=== PATIENT | female | born 1960 | race Caucasian/White ===

== ENCOUNTER 2018-12-27 11:29 | Inpatient (IN) | payer BC ==
[2018-12-27 12:11] LABS: Bilirubin Negative (Negative); Blood, Urine Moderate (Negative); Clarity CLEAR (Clear); Glucose, Urine (Dipstick) Negative (Negative); Leukocyte Negative (Negative); Nitrite Negative (Negative); Protein, Urine (Dipstick) Negative (Neg-Trace); Specific Gravity, Urine 1.021 (1.002-1.036)
[2018-12-27 12:14] LABS: Bacteria/HPF None Seen HPF (None Seen); Hyaline Casts/LPF 0-3 HYALINE CAST LPF (0-3 Hyaline); Pathc Cast-AUWi Flag 0.81 (0-2.49); RBC/HPF 21-50 HPF (0-3); Squamous Epithelial 0-3 HPF (0-3); WBC/HPF 0-3 HPF (0-3)
[2018-12-27] MEDS ORDERED: Acetaminophen 500 MG TAB ONE (12:37)
[2018-12-27] MEDS ORDERED: Cefepime 2 GM in Sodium Chloride 0.9% 100 ML IVPB SCH (13:00)
[2018-12-27 13:01] LABS: Hemoglobin 7.9 g/dL (12.0-16.0); Mean Corpuscular HGB CONC 31.6 g/dL (32.0-36.0); Mean Corpuscular Hemoglobin 26.4 pg (27.0-31.0); Mean Corpuscular Volume 83.7 fL (78.0-98.0); Mean Platelet Volume 7.8 fL (7.4-10.4); Platelet Count 32 thou/uL (130-400); RBC Distribution Width 19.6 % (11.5-14.5); Red Blood Cell (RBC) Count 2.99 mill/uL (4.20-5.40); White Blood Cell (WBC) Count 3.3 thou/uL (4.8-10.8)
[2018-12-27 13:18] LABS: ALT (SGPT) 19 U/L (8-55); AST (SGOT) 36 U/L (5-34); Albumin 3.3 g/dL (3.5-5.0); Alkaline Phosphatase 86 U/L (40-150); Anion Gap 9 mmol/L (10-20); BUN (Urea Nitrogen) 15 mg/dL (9.8-20.1); Bilirubin, Total 1.6 mg/dL (0.2-1.2); Calc. Creatinine Clearance 0 mL/min (70-130); Carbon Dioxide 25 mmol/L (22-29); Chloride 107 mmol/L (98-107); Estimated GFR-MDRD 86; Globulin 2.9 g/dL (2.4-3.5); Glucose 96 mg/dL (70-105); Potassium 4.2 mmol/L (3.5-5.1); Protein, Total 6.2 g/dL (6.0-8.3); Sodium 137 mmol/L (136-145)
[2018-12-27 13:26] LABS: #Lymphocytes 0.5 thou/uL (1.20-3.40); #Monocytes 0.4 thou/uL (0.11-0.59); #Neutrophils 2.3 thou/uL (1.40-6.50); %Eosinophils 0.3 % (0.0-10.0); %Lymphocytes 15.7 % (21.0-51.0); %Monocytes 12.8 % (0.0-10.0); %Neutrophils 71.2 % (42.0-75.0); Anisocytosis SLIGHT = 6-15 cells (100X) (0-5/hpf); Hypochromia SLIGHT = 6-15 cells (100X) (0-5/hpf); MDiff Complete? YES; Platelet Morphology Comment Appears Decreased
--- NOTE | 2018-12-27 13:48 | RAD ---
RADIOGRAPH CHEST 1 VIEW: Date: 12/27/18 Time: 1136 HOURS HISTORY: fever COMPARISON: 01/22/15. There are no prior chest radiographs later than 01/22/15. FINDINGS: The previously demonstrated right IJ implantable vascular access port has been replaced with a differ ent type of such catheter. The distal tip overlies the SVC. There is a new finding of multiple small focal faint very irregular nodular densities in the bilateral mid and lower lung zones, and one at th e right apex. There is no consolidation, cardiomegaly, pneumothorax, pulmonary edema, or effacement o f lateral costophrenic angles. IMPRESSION: 1. Multiple faint nodular densities bilaterally, perhaps representing pulmonary metastases. 2. No definite acute findings. TERI [] POS: LILIBETH
[2018-12-27] MEDS ORDERED: Acetaminophen 325 MG TAB PO PRN (17:58)
[2018-12-27] MEDS ORDERED: fentaNYL 50 mcg/hour Patch TD SCH (18:00)
[2018-12-27 18:21] VITALS: BMI 30.2
[2018-12-27 18:35] LABS: Mean Corpuscular HGB CONC 30.9 g/dL (32.0-36.0); Mean Corpuscular Hemoglobin 26.3 pg (27.0-31.0); Mean Corpuscular Volume 85.2 fL (78.0-98.0); Mean Platelet Volume 16.6 fL (7.4-10.4); Platelet Count 27 thou/uL (130-400); RBC Distribution Width 19.4 % (11.5-14.5); Red Blood Cell (RBC) Count 3.02 mill/uL (4.20-5.40); White Blood Cell (WBC) Count 2.8 thou/uL (4.8-10.8)
[2018-12-27] MEDS: Sodium Chloride 0.9% 1,000 ML IV SCH (18:36)
[2018-12-27] MEDS: Nicotine 14 MG PATCH TOP SCH (18:39)
[2018-12-27 18:51] LABS: #Lymphocytes 0.6 thou/uL (1.20-3.40); #Monocytes 0.4 thou/uL (0.11-0.59); #Neutrophils 1.8 thou/uL (1.40-6.50); %Basophils 0.7 % (0.0-1.0); %Eosinophils 0.2 % (0.0-10.0); %Lymphocytes 20.6 % (21.0-51.0); %Monocytes 14.5 % (0.0-10.0); Anisocytosis SLIGHT = 6-15 cells (100X) (0-5/hpf); Elliptocytes SLIGHT = 2-5 cells (100X) (0-1/hpf); Hypochromia SLIGHT = 6-15 cells (100X) (0-5/hpf); MDiff Complete? YES; Microcytosis SLIGHT = 6-15 cells (100X) (0-5/hpf); Platelet Morphology Comment Appears Decreased; Tear Drops SLIGHT = 2-5 cells (100X) (0-1/hpf)
[2018-12-27 18:53] LABS: Iron 25 ug/dL (50-170); Iron Binding Capacity, Total 325 mcg/dL (265-497)
[2018-12-27 19:26] LABS: CEA, Serum 25.87 ng/mL (< or = 5.0); Folate (Folic Acid) 9.5 ng/mL (7.0-31.4)
[2018-12-27] MEDS ORDERED: tiZANidine HCl 4 MG TAB PO SCH (21:00)
[2018-12-27] MEDS ORDERED: Prevnar 13-Val Conj/PF 0.5 ML SYRINGE IM ONE (21:00)
[2018-12-27] MEDS ORDERED: rOPINIRole HCl 1 MG TAB PO PRN (21:05)
--- NOTE | 2018-12-27 21:23 | HP ---
CHIEF COMPLAINT: Neutropenic fever with pancytopenia. HISTORY OF PRESENT ILLNESS: The patient is a 58-year-old female, who has had 3 days of fever, has not taken any medication for fever. She has a history of colon cancer with mets to her lung. She had her colon removed by Dr. Fraser many years ago and has been undergoing a 2nd round of chemotherapy. She was supposed to have her 3rd infusion yesterday, but due to not feeling well, did not go and showed up at my office on this day of admission to see why she felt so bad. A strep swab was done in my office at about noon and it was negative for strep. She looked so ill and was mentally confused. She was sent to the emergency room. It is concerning that she may have an elevated ammonia level, which she has had in the past. The patient' s temperature to this point has been usually 101 to 101.9. In the ER, it is noted at being 101.8. PAST MEDICAL HISTORY: As mentioned previously, she has had a history of colon cancer, it was surgically resected by Dr. Fraser several years ago. Past medical history also includes osteoporosis, hepatitis C, treated in 1989, hypothyroidism , depression, chronic pain, history of intestinal stricture. She also has history of recurrent muscle spasms, hypothyroidism, and attention deficit disorder, adverse dermatological reaction to her chemotherapy, RLS PAST SURGICAL HISTORY: Includes right ankle surgery, the aforementioned colon resection, a followup intestinal stricture takedown by Dr. Brantley in 2014, hysterectomy. PAST PSYCHIATRIC HISTORY: Includes depression and anxiety. SOCIAL HISTORY: She is currently . She continues to smoke 1/2 pack per day and drinks socially. FAMILY HISTORY: Noncontributory. She has no known drug allergies. MEDICATIONS ON ADMISSION: Include; 1. Tizanidine 4 mg b.i.d. 2. Duloxetine 30 mg daily. 3. Capecitabine 500 mg tablet that she takes three times a day. 4. Levothyroxine 88 mcg daily. 5. Methylphenidate 10 mg b.i.d. 6. She uses a fentanyl 50 mcg patch every 72 hours and has hydrocodone is present for breakthrough pain. 7. Ropinerole 1 mg q hs REVIEW OF SYSTEMS: CONSTITUTIONAL: Given by her spouse because she is confused. He admits to fever, malaise, chills prior to coming to the hospital. She has been confused. HEENT: Denies her having any blurred vision, trouble hearing. No drainage from ears, nose, or throat. She has had a sore throat and it was strep negative. CHEST: She has some mild shortness of breath. Only an occasional cough that is nonproductive. HEART: Denies palpitations or chest pain. ABDOMEN: No nausea, vomiting, or diarrhea. : No painful urination. No blood in urine or stool. MUSCULOSKELETAL: Denies any pain in joints or muscles. SKIN: No new rashes or lesions. NEUROLOGIC: She is confused. PHYSICAL EXAMINATION: At the time of admission, VITAL SIGNS: Blood pressure 137/80, pulse 104, temperature 101.8, O2 saturation is 95% on room air. GENERAL: This is a well-developed, well-nourished female, who is somewhat confused, but cooperative. HEENT: Normocephalic, atraumatic. Pupils are equal, round, and reactive to light. Extraocular muscles intact. TMs, nares, and pharynx are clear. NECK: Supple. Trachea midline. No significant adenopathy or tenderness. CHEST: Clear to auscultation. HEART: Regular rate and rhythm. Occasionally tachycardic. BREASTS: Deferred. ABDOMEN: Soft, nontender without organomegaly. : Deferred. EXTREMITIES: Without clubbing, cyanosis. There is 1+ edema in the lower extremities. SKIN: Without acute rashes or lesions. Mildly pale. NEUROLOGIC: Cranial nerves are intact. Sensory exam is grossly intact. Gait and cerebellar function are not tested. Mental status is altered at this time. LABORATORY DATA: The lab work from admission. Chest x-ray shows evidence of diffuse metastatic disease. The urinalysis shows 20 to 50 rbc's. The CBC shows a WBC of 3.3, hemoglobin 7.9, hematocrit 25 with platelets at 32. Lactic acid is at 0.7. Sodium 137, potassium 4.2, chloride 107, CO2 is 25, BUN is 15, creatinine 0.7 with a GFR of 86, glucose 98, calcium 8, bilirubin 1.6. Protein 6.2. AST slightly elevated at 36. The flu screens are negative for A and B as well as strep screen negative. ASSESSMENT: 1. Neutropenic fever with pancytopenia. 2. Anemia. 3. History of metastatic colon cancer. 4. Thrombocytopenia. 5. Chronic pain. PLAN: IV fluids, IV antibiotics. Oncology consult. Pain Management. Serial re-evaluation. Job ID: [id number] MTDD
[2018-12-27] MEDS: diphenhydrAMINE 25 MG CAP PO PRN (22:01)
[2018-12-27] MEDS: tiZANidine HCl 4 MG TAB PO SCH (22:02)
[2018-12-28] MEDS: Sodium Chloride 0.9% 1,000 ML IV SCH ×2 (01:23→17:32)
[2018-12-28] MEDS: Cefepime 2 GM in Sodium Chloride 0.9% 100 ML IVPB SCH ×3 (01:23→18:40)
[2018-12-28] MEDS: Vancomycin HCl 1.25 GM in Sodium Chloride 0.9% 250 ML 250 ML IVPB SCH ×2 (02:50→13:55)
[2018-12-28] MEDS: Levothyroxine Sodium 88 MCG TAB PO SCH (06:03)
[2018-12-28] MEDS ORDERED: tiZANidine HCl 4 MG TAB PO SCH (09:00)
[2018-12-28] MEDS: DULoxetine 30 MG CAP PO SCH (09:18)
--- NOTE | 2018-12-28 11:06 | RAD ---
CHEST 2 VIEWS: Date: 12/28/18 HISTORY: History of mets and lung cancer. Follow-up fever status post chemotherapy. FINDINGS: Patchy alveolar nodular and interstitial parenchymal changes noted bilaterally, more prominent in the right mid and upper lung zone when compared to the prior study. This raises the concern for the poss ibility of some minimal or early pneumonia. Heart size is within normal limits. There are nodular meghna nges noted bilaterally, which certainly could represent pulmonary metastasis. There are some healed r ib fractures. No overt edema or confluent pneumonia. IMPRESSION: Some patchy alveolar and interstitial parenchymal changes, more focally prominent in the right upper lobe, raising concern for early or developing pneumonia. Nodular changes in both lungs, worrisome for the possibility of metastasis. Continue short-term follow-up for clearing or stability. POS: LILIBETH
[2018-12-28] MEDS: diphenhydrAMINE 25 MG CAP PO PRN ×2 (15:13→20:50)
--- NOTE | 2018-12-28 15:57 | CON ---
DATE OF CONSULTATION: REASON FOR CONSULT: Metastatic colon cancer. HISTORY OF PRESENT ILLNESS: Ms. Muhammad is a 58-year-old female who has metastatic colon cancer. She receives her care in [place], [place]. She presented to her PCP with 4-day complaint of fever. She looked ill, so was sent to the emergency room for further evaluation. Chest x-ray showed a possible early pneumonia. The patient 's white count in the emergency room was 2.8, her hemoglobin was 8, her platelet count was 27,000. She had an ANC of 1.8. She was admitted for treatment. The patient has a history of pancytopenia secondary to cirrhosis and hepatitis C. She is currently at her baseline white count. She did receive chemo last week. She does not remember the name of the chemo. She has been on this regimen for over 3 months. This is her first fever or hospitalization with chemo. She complains of hoarseness and cough. Denies any fever, chills, chest pain, or shortness of breath at this time. PAST MEDICAL HISTORY: 1. Metastatic adenocarcinoma of the colon. 2. Depression and anxiety. 3. Hypothyroidism. 4. Hepatitis C. 5. Cirrhosis. PAST SURGICAL HISTORY: 1. Ankle surgery. 2. Colon resection. 3. Intestinal stricture takedown. 4. MediPort placement. 5. Hysterectomy. ALLERGIES: NO KNOWN DRUG ALLERGIES. HOME MEDICATIONS: 1. Ropinirole daily q.6 hours. 2. Tizanidine b.i.d. 3. Hydrocodone p.r.n. 4. Levothyroxine 50 mcg daily. 5. Fentanyl patch. FAMILY HISTORY: Noncontributory. SOCIAL HISTORY: , lives in [place]. REVIEW OF SYSTEMS: A 10-point review of systems is negative except for noted in the HPI. PHYSICAL EXAMINATION: VITAL SIGNS: Temperature 99.3, pulse is 95, respiratory rate 18, BP is 131/73. She is 95% on room air. GENERAL: Well-developed, well-nourished female, in no acute distress. HEENT: Normocephalic, atraumatic. Pupils are equal and reactive to light. NECK: Supple. CV: Regular rate and rhythm. LUNGS: Clear. ABDOMEN: Soft, nontender. Bowel sounds are positive. EXTREMITIES: No clubbing, cyanosis, or edema. SKIN: No rash. HEMATOLOGICAL: No petechiae or purpura. NEUROLOGICAL: Nonfocal. PSYCH: The patient is alert, oriented, and appropriate. PERTINENT LABS AND X-RAYS: Current WBCs are 3.3, hemoglobin 7.9, hematocrit 25, platelet count 32,000. She has 71% neutrophils, 15% lymphocytes, 13% monocytes. Sodium is 137, potassium 4.2, chloride 107, CO2 is 25, BUN is 15, creatinine 0.7 , lactic acid 0.7, calcium 8.0, total bilirubin is 1.6, AST is 36, ALT is 19, alkaline phosphatase is 86. Ammonia is 37. Serum total protein 6.2, albumin 3.3, globulin 2.9. CEA is 25.87. B12 and folate are normal. Radiology, per HPI. ASSESSMENT: 1. Metastatic colon cancer, possibly on Xeloda oral chemotherapy. 2. Chronic pancytopenia secondary to cirrhosis and hepatitis C. 3. Early pneumonia with fever. DISCUSSION: The patient's ANC is improved to 2.3. She is no longer neutropenic. She does have chronic pancytopenia. No need for platelet transfusion at this time as it has had a baseline based on lab values reviewed in the [facility]. I would discontinue the vancomycin and continue the cefepime with transition to oral Levaquin. She can be discharged to follow up with her primary oncologist in [place] when she has been afebrile for 24 hours. Thank you for the consult. Job ID: [id number] SHANTEL
[2018-12-28] MEDS: Nicotine 14 MG PATCH TOP SCH (18:43)
[2018-12-28] MEDS: tiZANidine HCl 4 MG TAB PO SCH (20:48)
[2018-12-29] MEDS: Sodium Chloride 0.9% 1,000 ML IV SCH ×2 (02:06→12:01)
[2018-12-29] MEDS: Cefepime 2 GM in Sodium Chloride 0.9% 100 ML IVPB SCH ×3 (02:10→18:20)
[2018-12-29] MEDS: Levothyroxine Sodium 88 MCG TAB PO SCH (07:00)
[2018-12-29] MEDS: DULoxetine 30 MG CAP PO SCH (09:30)
[2018-12-29] MEDS ORDERED: Buprenorphine 8mg/Naloxone 2mg per 1 FILM SL SCH (11:45)
[2018-12-29] MEDS: diphenhydrAMINE 25 MG CAP PO PRN ×2 (14:57→20:48)
[2018-12-29] MEDS: Nicotine 14 MG PATCH TOP SCH (20:49)
[2018-12-29] MEDS: tiZANidine HCl 4 MG TAB PO SCH (20:49)
[2018-12-30] MEDS: Cefepime 2 GM in Sodium Chloride 0.9% 100 ML IVPB SCH (01:51)
[2018-12-30] MEDS: diphenhydrAMINE 25 MG CAP PO PRN ×2 (01:51→21:21)
[2018-12-30 04:19] LABS: Hemoglobin 6.5 g/dL (12.0-16.0); Mean Corpuscular HGB CONC 30.4 g/dL (32.0-36.0); Mean Corpuscular Hemoglobin 25.5 pg (27.0-31.0); Mean Corpuscular Volume 83.9 fL (78.0-98.0); Mean Platelet Volume 15.6 fL (7.4-10.4); Platelet Count 17 thou/uL (130-400); RBC Distribution Width 19.5 % (11.5-14.5); Red Blood Cell (RBC) Count 2.56 mill/uL (4.20-5.40); White Blood Cell (WBC) Count 1.2 thou/uL (4.8-10.8)
[2018-12-30 04:47] LABS: Anisocytosis SLIGHT = 6-15 cells (100X) (0-5/hpf); Band 4 % (5-11); Elliptocytes SLIGHT = 2-5 cells (100X) (0-1/hpf); Eosinophils 2 % (0-10); Lymphocytes 24 % (21-51); MDiff Complete? YES; Monocytes 14 % (0-10); Myelocyte 1 % (0-0); Neutrophil 55 % (42-75); Tear Drops SLIGHT = 2-5 cells (100X) (0-1/hpf)
[2018-12-30] MEDS: Levothyroxine Sodium 88 MCG TAB PO SCH (05:17)
[2018-12-30] MEDS: Buprenorphine 8mg/Naloxone 2mg per 1 FILM SL SCH (09:03)
[2018-12-30] MEDS: DULoxetine 30 MG CAP PO SCH (09:04)
[2018-12-30] MEDS: Nicotine 14 MG PATCH TOP SCH (18:15)
[2018-12-30] MEDS: tiZANidine HCl 4 MG TAB PO SCH (21:21)
[2018-12-31] MEDS: diphenhydrAMINE 25 MG CAP PO PRN (04:17)
[2018-12-31] MEDS: Levothyroxine Sodium 88 MCG TAB PO SCH (04:17)
[2018-12-31 07:05] LABS: #Lymphocytes 0.6 thou/uL (1.20-3.40); #Monocytes 0.3 thou/uL (0.11-0.59); #Neutrophils 1.5 thou/uL (1.40-6.50); %Basophils 0.6 % (0.0-1.0); %Eosinophils 0.2 % (0.0-10.0); %Lymphocytes 22.7 % (21.0-51.0); %Monocytes 13.7 % (0.0-10.0); %Neutrophils 62.8 % (42.0-75.0); Hemoglobin 9.7 g/dL (12.0-16.0); Mean Corpuscular HGB CONC 30.7 g/dL (32.0-36.0); Mean Corpuscular Hemoglobin 26.6 pg (27.0-31.0); Mean Corpuscular Volume 86.7 fL (78.0-98.0); Mean Platelet Volume 15.2 fL (7.4-10.4); Platelet Count 26 thou/uL (130-400); RBC Distribution Width 18.9 % (11.5-14.5); Red Blood Cell (RBC) Count 3.65 mill/uL (4.20-5.40); White Blood Cell (WBC) Count 2.5 thou/uL (4.8-10.8)
[2018-12-31 07:25] LABS: Anion Gap 10 mmol/L (10-20); BUN (Urea Nitrogen) 7 mg/dL (9.8-20.1); Calc. Creatinine Clearance 120 mL/min (70-130); Calcium 8.1 mg/dL (7.8-10.44); Carbon Dioxide 26 mmol/L (22-29); Chloride 105 mmol/L (98-107); Estimated GFR-MDRD Greater than 90; Glucose 83 mg/dL (70-105); Potassium 4.1 mmol/L (3.5-5.1); Sodium 137 mmol/L (136-145)
[2018-12-31] MEDS: DULoxetine 30 MG CAP PO SCH (09:16)
[2018-12-31] MEDS: hydrOXYzine 25 MG TAB PO SCH ×2 (09:23→13:32)
[2018-12-31 10:19] VITALS: BP 144/73; TEMP 98
[2018-12-31] MEDS: Buprenorphine 8mg/Naloxone 2mg per 1 FILM SL SCH (10:35)
== END 2018-12-31 15:05 | disposition home or self-care (01) | DRG 810 ==
LOC: ERS 11:29 → ONC 13:35
PROVIDERS: ADMIT Specialist; ATTEND Specialist
DX: D70.9 Neutropenia, unspecified (principal); R50.81 Fever presenting with conditions classified elsewhere; F41.9 Anxiety disorder, unspecified; F32.9 Major depressive disorder, single episode, unspecified; D64.9 Anemia, unspecified; Z85.038 Personal history of other malignant neoplasm of large intestine; D69.6 Thrombocytopenia, unspecified; G89.29 Other chronic pain
CPT/HCPCS: 36415; 36430; 71045; 71046; 80048; 80053; 81003; 81015; 82140; 82378; 82607; 82746; 83540; 83550; 83605; 85025; 86850; 86900; 86901; 87040; 87086; 87804; 90471; 90670; 94760; 96365; 96367; G0009; J0692; J1642; J1956; J3370; J7050; P9016; Q0163

== ENCOUNTER 2019-02-17 11:51 | Emergency (ER) | payer BC ==
[2019-02-17] MEDS ORDERED: Ketorolac Tromethamine 30 MG/ML VIAL ONE (13:42)
[2019-02-17 14:19] LABS: Blood, Urine Negative (Negative); Clarity CLOUDY (Clear); Glucose, Urine (Dipstick) Negative (Negative); Protein, Urine (Dipstick) Trace mg/dL (Neg-Trace); Specific Gravity, Urine 1.024 (1.002-1.036); Urobilinogen 0.2 mg/dL (0.2-1.0)
[2019-02-17 14:21] LABS: Bacteria/HPF None Seen HPF (None Seen); RBC/HPF 0-3 HPF (0-3); WBC/HPF 0-3 HPF (0-3)
[2019-02-17 14:23] LABS: Pathc Cast-AUWi Flag 13.87 (0-2.49)
[2019-02-17 14:30] LABS: Hemoglobin 7.9 g/dL (12.0-16.0); Mean Corpuscular HGB CONC 32.9 g/dL (32.0-36.0); Mean Corpuscular Volume 88.2 fL (78.0-98.0); RBC Distribution Width 19.6 % (11.5-14.5); Red Blood Cell (RBC) Count 2.71 mill/uL (4.20-5.40); White Blood Cell (WBC) Count 2.1 thou/uL (4.8-10.8)
[2019-02-17 14:31] LABS: Bilirubin Negative (Negative); Leukocyte Negative (Negative); Nitrite Negative (Negative)
[2019-02-17 14:32] LABS: Hyaline Casts/LPF 7-10 HYALINE CAST LPF (0-3 Hyaline); Other Casts/LPF 0-3 FINELY GRAN LPF (0-3 Hyaline)
[2019-02-17 14:33] LABS: Crystals/HPF 1+ AMORPH URATES HPF (Negative)
[2019-02-17 14:37] LABS: #Lymphocytes 0.3 thou/uL (1.20-3.40); #Monocytes 0.2 thou/uL (0.11-0.59); #Neutrophils 1.6 thou/uL (1.40-6.50); %Eosinophils 0.7 % (0.0-10.0); %Lymphocytes 15.5 % (21.0-51.0); %Monocytes 7.2 % (0.0-10.0); %Neutrophils 76.5 % (42.0-75.0); Platelet Count 16 thou/uL (130-400)
[2019-02-17 14:49] LABS: ALT (SGPT) 18 U/L (8-55); AST (SGOT) 52 U/L (5-34); Albumin 2.7 g/dL (3.5-5.0); Alkaline Phosphatase 70 U/L (40-150); Anion Gap 11 mmol/L (10-20); BUN (Urea Nitrogen) 20 mg/dL (9.8-20.1); Bilirubin, Total 1.3 mg/dL (0.2-1.2); Calc. Creatinine Clearance 0 mL/min (70-130); Calcium 7.5 mg/dL (7.8-10.44); Carbon Dioxide 23 mmol/L (22-29); Chloride 97 mmol/L (98-107); Estimated GFR-MDRD 75; Globulin 2.9 g/dL (2.4-3.5); Glucose 120 mg/dL (70-105); Potassium 3.9 mmol/L (3.5-5.1); Protein, Total 5.6 g/dL (6.0-8.3); Sodium 127 mmol/L (136-145)
[2019-02-17 14:50] LABS: Anisocytosis MODERATE=16-30 cells (100X) (0-5/hpf); Elliptocytes SLIGHT = 2-5 cells (100X) (0-1/hpf); Large Platelets SLIGHT; MDiff Complete? YES; Mean Platelet Volume 12.7 fL (7.4-10.4); Ovalocytes SLIGHT = 2-5 cells (100X) (0-1/hpf); Platelet Morphology Comment Appears Decreased; Poikilocytosis SLIGHT = 6-15 cells (100X) (0-5/hpf); Polychromasia SLIGHT = 2-3 cells (100X) (0-2/hpf); Schistocytes SLIGHT = 2-5 cells (100X) (0-1/hpf)
--- NOTE | 2019-02-17 15:33 | CT ---
EXAM: Abdomen and pelvic CT scan with contrast: HISTORY: Colon cancer, pain COMPARISON: 01/09/2015 CT exam FINDINGS: Numerous bilateral pulmonary nodules with cavitation are present throughout the visualized lung bases . Esophageal varices are seen at the low chest. Liver: Calcified lesion at the hepatic dome is present and there are additional, multifocal hepatic h ypodense lesions. There is a mild cirrhotic, nodular contour of the liver. Recanalization of the adjacent periumbilical vein present. Gallbladder: Not visualized Pancreas: Unremarkable Spleen: Enlarged and heterogeneous. Splenic varices. Adrenal glands: Unremarkable. Kidneys: No renal calculus or acute obstruction. There is mass effect upon the left kidney due to the markedly enlarged spleen. Bowel: Bowel is limited in assessment without enteric contrast. There are loops of air distended colo n. Anastomotic sutures seen within the right lower quadrant. Large, 8.6 cm in diameter, partially calcified cystic and solid mass of the left lower quadrant, which cannot be fully from the traversing unopacified bowel. Urinary Bladder: The urinary bladder is unremarkable. Adenopathy: There are scattered borderline-sized abdominal lymph nodes Free Air: No free air. Ascites: No ascites. Osseous structures: No acute osseous abnormalities. Ill-defined stellate density of the lower right ventral abdominal wall could relate to scar or altern atively mass embedded within the abdominal wall musculature. IMPRESSION: Cirrhosis and portal hypertension. Large partially calcified cystic and solid mass of the left lower quadrant indicative of malignancy, site of origin, not further discerned. Primary consideration would include a large calcified colonic malignancy or alternatively left ovarian malignancy. Correlation with follow-up exam utilizin g rectal contrast administration would be helpful. As necessary, mass would be amenable to percutaneous biopsy. Numerous metastatic pulmonary nodules, cavitated. Calcified lesion of the hepatic dome which could either relate to calcified metastatic lesion or alte rnatively briefly treated malignancy. Correlate with history and interval prior imaging exams. Transcribed Date/Time: 02/17/2019 5:07 PM
[2019-02-17] MEDS ORDERED: ISOVUE-370 76%-LOCM 1 ML ONE (17:07)
== END 2019-02-17 17:38 | disposition home or self-care (01) ==
LOC: ERS 11:51
DX: R10.9 Unspecified abdominal pain (principal); E87.1 Hypo-osmolality and hyponatremia; D61.818 Other pancytopenia; C18.9 Malignant neoplasm of colon, unspecified; E03.9 Hypothyroidism, unspecified; Z79.899 Other long term (current) drug therapy; F17.210 Nicotine dependence, cigarettes, uncomplicated
CPT/HCPCS: 74177; 80053; 81003; 83605; 85025; 86850; 86900; 86901; 87077; 87086; 87149; A4353; J1885; Q9966

== ENCOUNTER 2019-02-18 12:26 | Inpatient (IN) | payer BC ==
--- NOTE | 2019-02-18 12:47 | RAD ---
Chest AP view INDICATION: Fever and neck pain COMPARISON: Chest radiograph dated 12/28/2018 FINDINGS: Lungs:There are numerous scattered pulmonary nodules consistent with pulmonary metastatic disease. Cardiac silhouette pulmonary vasculature:The cardiomediastinal silhouette appears within normal limit s. Pleural spaces:No pleural effusion or pneumothorax is demonstrated. Upper abdomen:No abnormality seen. Osseous structures: No acute osseous abnormality. The right chest wall port is unchanged in position. IMPRESSION: Stable pulmonary metastatic disease. No definite acute infiltrate demonstrated.
[2019-02-18] MEDS ORDERED: Morphine 4 MG/ML VIAL ONE (13:16)
[2019-02-18] MEDS ORDERED: Ondansetron PF 4 MG/2 ML Vial ONE (13:16)
[2019-02-18 13:19] LABS: #Lymphocytes 0.3 thou/uL (1.20-3.40); #Monocytes 0.2 thou/uL (0.11-0.59); #Neutrophils 1.9 thou/uL (1.40-6.50); %Basophils 1.1 % (0.0-1.0); %Eosinophils 0.6 % (0.0-10.0); %Lymphocytes 11.8 % (21.0-51.0); %Monocytes 8.9 % (0.0-10.0); %Neutrophils 77.8 % (42.0-75.0); Hemoglobin 9.2 g/dL (12.0-16.0); Mean Corpuscular HGB CONC 32.2 g/dL (32.0-36.0); Mean Corpuscular Hemoglobin 29.1 pg (27.0-31.0); Mean Corpuscular Volume 90.3 fL (78.0-98.0); Mean Platelet Volume 15.9 fL (7.4-10.4); Platelet Count 12 thou/uL (130-400); RBC Distribution Width 19.6 % (11.5-14.5); Red Blood Cell (RBC) Count 3.16 mill/uL (4.20-5.40); White Blood Cell (WBC) Count 2.5 thou/uL (4.8-10.8)
[2019-02-18 13:31] LABS: ALT (SGPT) 26 U/L (8-55); AST (SGOT) 82 U/L (5-34); Albumin 2.9 g/dL (3.5-5.0); Alkaline Phosphatase 79 U/L (40-150); Anion Gap 14 mmol/L (10-20); BUN (Urea Nitrogen) 24 mg/dL (9.8-20.1); Bilirubin, Total 1.5 mg/dL (0.2-1.2); Calc. Creatinine Clearance 0 mL/min (70-130); Calcium 7.6 mg/dL (7.8-10.44); Carbon Dioxide 19 mmol/L (22-29); Chloride 99 mmol/L (98-107); Estimated GFR-MDRD 81; Globulin 3.1 g/dL (2.4-3.5); Glucose 93 mg/dL (70-105); Potassium 3.8 mmol/L (3.5-5.1); Sodium 128 mmol/L (136-145)
[2019-02-18] MEDS ORDERED: Acetaminophen 500 MG TAB ONE (13:36)
[2019-02-18] MEDS ORDERED: Fentanyl 100 MCG/2 ML VIAL ONE (14:19)
[2019-02-18] MEDS ORDERED: Piperacillin/Tazobactam 4.5 GM VIAL ONE (14:19)
[2019-02-18 15:05] LABS: Bilirubin Small (Negative); Blood, Urine Trace (Negative); Clarity CLEAR (Clear); Glucose, Urine (Dipstick) Negative (Negative); Leukocyte Negative (Negative); Nitrite Negative (Negative); Protein, Urine (Dipstick) Trace mg/dL (Neg-Trace); Specific Gravity, Urine 1.028 (1.002-1.036); Urobilinogen 0.2 mg/dL (0.2-1.0); pH, Urine 5.5 (5.0-9.0)
[2019-02-18 15:08] LABS: Bacteria/HPF None Seen HPF (None Seen); RBC/HPF 0-3 HPF (0-3); Squamous Epithelial 0-3 HPF (0-3)
[2019-02-18 15:19] LABS: Hyaline Casts/LPF 4-6 HYALINE CAST LPF (0-3 Hyaline); Other Casts/LPF 0-3 FINELY GRAN LPF (0-3 Hyaline)
[2019-02-18 15:20] LABS: Renal Epithelial 0-3 HPF (0-3); Transitional Epithelial 0-3 HPF (0-3)
[2019-02-18 15:42] LABS: Troponin I 0.048 ng/mL (< 0.028)
[2019-02-18] MEDS ORDERED: Fentanyl 100 MCG/2 ML VIAL SLOW IVP PRN ×2 (16:21→19:40)
[2019-02-18] MEDS ORDERED: Ondansetron ODT 4 MG TAB SL PRN (16:21)
[2019-02-18] MEDS ORDERED: Acetaminophen 500 MG TAB PO PRN (16:21)
[2019-02-18] MEDS ORDERED: Ondansetron PF 4 MG/2 ML Vial IVP PRN (16:21)
[2019-02-18] MEDS ORDERED: Fentanyl 100 MCG/2 ML VIAL SLOW IVP SCH (17:00)
[2019-02-18] MEDS: Sodium Chloride 0.9% 1,000 ML IV SCH (18:02)
[2019-02-18 18:32] LABS: Troponin I 0.019 ng/mL (< 0.028)
[2019-02-18 18:37] VITALS: BMI 28.3
[2019-02-18] MEDS: Fentanyl 100 MCG/2 ML VIAL SLOW IVP PRN ×2 (19:06→23:03)
[2019-02-18] MEDS ORDERED: Simethicone Chewable 80 MG TAB PO PRN (19:39)
[2019-02-18] MEDS: Piperacillin/Tazobactam 4.5 GM in Sodium Chloride 0.9% 100 ML IVPB SCH (19:45)
[2019-02-18] MEDS: tiZANidine HCl 4 MG TAB PO SCH (20:28)
[2019-02-18 21:22] LABS: Troponin I 0.029 ng/mL (< 0.028)
[2019-02-18] MEDS: Promethazine HCl 25 MG in Sodium Chloride 0.9% 50 ML IVPB PRN (23:04)
[2019-02-19] MEDS: Sodium Chloride 0.9% 1,000 ML IV SCH ×3 (00:59→17:31)
[2019-02-19] MEDS: Piperacillin/Tazobactam 4.5 GM in Sodium Chloride 0.9% 100 ML IVPB SCH ×3 (01:10→13:18)
--- NOTE | 2019-02-19 03:17 | HP ---
CHIEF COMPLAINT: Neutropenia with fever. HISTORY OF PRESENT ILLNESS: The patient is a 58-year-old metastatic colon cancer patient undergoing chemotherapy who arrived at Dr. Morataya' office on the date of admission, very weak, barely able to walk, complaining of neck and back pain. Her temperature in his office was 101.6, and on physical exam she had petechiae and skin eruption all over her face and chest. Her lungs were clear. Heart, tachycardic. Back and neck were both tender to palpation. Abdomen, soft without organomegaly. Skin, hot. Neurologically, she was mildly agitated and confused. At this point, her , who was with her, was told to take her to the emergency room for obtaining blood cultures and beginning IV fluid resuscitation as well as antibiotics in the fastest manner possible. The patient has been fighting her cancer diagnosis for several years, it is metastatic. Her states that she recently started a new chemotherapy that he cannot recall the name of. Their oncologist is in [place], they spent some time at [facility] and was discharged from [facility] earlier last week. She began to feel feverish with aches and pains and malaise. Such that, she came to the [facility] Emergency Room on 02/17/2019 and was subsequently sent home. At this point, she feels much worse and she is immunocompromised, such that she needs to be hospitalized. In the emergency room, she was noted to have a white count 2.5 with a platelet count of 12, and she arrived with a temperature of 102.7, and she was placed in the hospital for further care. PAST MEDICAL HISTORY: Significant for the aforementioned metastatic colon cancer surgically resected by Dr. Fraser several years ago. She also has osteoporosis, hepatitis C, history of polysubstance abuse. Her hepatitis C was treated in 1989, depression, chronic pain, intestinal stricture, muscle spasms, hypothyroidism, attention deficit disorder, and restless legs syndrome. She has also had an adverse reaction dermatologically to her chemo with diffuse skin eruption. She was last hospitalized for neutropenic fever with pancytopenia on 12/27/2018. PAST SURGICAL HISTORY: Includes right ankle surgery, colon resection, followup surgery for intestinal stricture takedown by Dr. Brantley in 2014, and hysterectomy. PAST PSYCHIATRIC HISTORY: Includes depression and anxiety. SOCIAL HISTORY: She is currently , has continued to smoke 1/2 pack per day and drinks socially and has no longer been using illicit drugs. FAMILY HISTORY: Noncontributory. ALLERGIES: SHE HAS NO KNOWN DRUG ALLERGIES. MEDICATIONS ON ADMISSION: 1. Duloxetine 30 mg 3 tabs daily. 2. Hydroxyzine 50 mg p.r.n. itching. 3. Levothyroxine 88 mcg daily. 4. Unknown pain medicine, supplied by her oncologist. REVIEW OF SYSTEMS: CONSTITUTIONAL: Positive for fatigue, fever, and general weakness. EYES, EARS, NOSE, AND THROAT: Significant for light sensitivity, conjunctival irritation and redness, clear drainage. CHEST: Denies coughing or shortness of breath. CARDIOVASCULAR: Denies chest pain or palpitations. GI: Negative for nausea, vomiting, diarrhea. : Negative for blood in urine or stool or painful urination or defecation. MUSCULOSKELETAL: Significant for a significant pain in both her neck and her midback, stiffness and muscle spasms are noted. SKIN: Has diffuse eruption with erythema and petechial outbreak on face and chest. NEUROLOGIC: Cranial nerves are intact. Sensory exam is intact. Gait and cerebral function are untested. Mental status appears at times confused and agitated. PHYSICAL EXAMINATION: VITAL SIGNS: On admission, blood pressure 100/64, pulse 90, respirations 22, temperature 102.7. Pain scale at a 10/10. O2 saturation 93% on room air. GENERAL: This is a middle-aged female who is alert, agitated, complaining generally of pain. HEENT: Normocephalic, atraumatic. Pupils are equal, round, and reactive to light. Extraocular muscles are intact. TMs, nares, and pharynx are clear. NECK: Supple. Trachea midline. CHEST: Clear to auscultation. HEART: Regular rate and rhythm, tachycardic. BREASTS: Deferred. ABDOMEN: Soft. Possible organomegaly versus abdominal mass noted in the left lower quadrant. : Deferred. EXTREMITIES: Without clubbing, cyanosis, or edema. SKIN: With petechial outbreak and rash in the face and chest. LABORATORY DATA: WBCs 2.5, hemoglobin 9.2, hematocrit 28.5 with platelets of 12. Sodium 128, potassium 3.8, chloride 99, CO2 19, BUN 24, creatinine 0.74 with a glucose of 93. Lactic acid 1.9. AST is slightly elevated at 82 as is total bilirubin at 1.5. Troponins are slightly elevated at 0.048 and ammonia is at 22. Urine shows 15 ketones, nitrites negative, 4 to 6 wbc's. Chest x-ray shows no acute findings with stable metastatic disease. ASSESSMENT: 1. Neutropenic fever. 2. Metastatic colon cancer. 3. Neck and back pain, etiology is yet to be determined, possibly due to metastatic disease. 4. History of hepatitis C. PLAN: Plan will be IV fluid resuscitation. Cultures have been taken. We will begin general IV antibiotics. We will consult Dr. Palacios for his opinion on her medication as well as Oncology for their expertise. Pain medication will be provided as well as serial re-evaluation. Job ID: [id number]
[2019-02-19] MEDS: Acetaminophen 325 MG TAB PO SCH ×4 (08:44→23:17)
[2019-02-19 09:54] LABS: Hemoglobin 7.6 g/dL (12.0-16.0); Mean Corpuscular HGB CONC 33.2 g/dL (32.0-36.0); Mean Corpuscular Volume 90.3 fL (78.0-98.0); Platelet Count 10 thou/uL (130-400); RBC Distribution Width 19.3 % (11.5-14.5); Red Blood Cell (RBC) Count 2.52 mill/uL (4.20-5.40)
[2019-02-19] MEDS ORDERED: Fentanyl 100 MCG/2 ML VIAL SLOW IVP SCH ×2 (10:30→20:00)
[2019-02-19 10:32] LABS: Band 2 % (5-11); Burr Cells SLIGHT = 2-5 cells (100X) (0-1/hpf); Elliptocytes SLIGHT = 2-5 cells (100X) (0-1/hpf); Hypochromia SLIGHT = 6-15 cells (100X) (0-5/hpf); Large Platelets SLIGHT; Lymphocytes 22 % (21-51); MDiff Complete? YES; Monocytes 2 % (0-10); Neutrophil 74 % (42-75); Platelet Morphology Comment Appears Decreased; Polychromasia SLIGHT = 2-3 cells (100X) (0-2/hpf); Schistocytes SLIGHT = 2-5 cells (100X) (0-1/hpf)
[2019-02-19] MEDS ORDERED: Gadobenate Dimeglumine 529 MG/1 ML (20ML VIAL) ONE (10:53)
[2019-02-19] MEDS ORDERED: Vancomycin HCl 1 GM in Premix Bag 1 BAG IVPB SCH (11:00)
[2019-02-19] MEDS: Lorazepam 0.5 MG TAB PO PRN ×2 (11:36→17:23)
[2019-02-19] MEDS: Fentanyl 100 MCG/2 ML VIAL SLOW IVP PRN ×2 (11:36→17:24)
--- NOTE | 2019-02-19 15:32 | CON ---
DATE OF CONSULTATION: REASON FOR CONSULT: Colon cancer with pancytopenia. HISTORY OF PRESENT ILLNESS: Ms. Muhammad is a 58-year-old female, who is undergoing treatment with IV chemotherapy in [place] for a metastatic colon cancer. She states she had her last treatment approximately 2 weeks ago. She did receive Neulasta IV after chemo infusion. She has been in [facility] until recently for intermittent fevers. She apparently went home last week and developed fever. She presented to the ER on February 17. She was treated and sent home, followed up with her primary care doctor, [place] yesterday. She was found to have severe back and neck pain, fever of 102. She was referred to the emergency room for evaluation. In the emergency room, her white count was 2.5. She had 78% neutrophils. Her hemoglobin was 9.2 and her platelet count was 12,000. She does have a history of hepatitis C, splenomegaly with chronic pancytopenia. She currently complains of severe neck and upper back pain. She states tripped and fell on a pencil approximately 3 weeks ago. Her pain has gotten significantly worse over the past several days. She denies any blurred vision. No other neurological problems. She had blood cultures and urine culture positive for MRSA on this admission. She is on antibiotics. PAST MEDICAL HISTORY: 1. Metastatic colon cancer. 2. Depression and anxiety. 3. Hypothyroidism. 4. Hepatitis C. 5. Cirrhosis. 6. Chronic pancytopenia. PAST SURGICAL HISTORY: 1. Ankle surgery. 2. Colon resection. 3. Intestinal stricture takedown. 4. MediPort placement. 5. Hysterectomy. ALLERGIES: TO CODEINE. HOME MEDICATIONS: 1. Cymbalta 90 mg daily. 2. Lasix 40 mg daily. 3. Lactulose q.4 hours. 4. Synthroid 50 mcg daily. 5. Ritalin b.i.d. 6. Allopurinol q.6 hours. 7. Tizanidine 4 mg b.i.d. 8. Zofran p.r.n. FAMILY HISTORY: Noncontributory. SOCIAL HISTORY: . Current smoker, half pack a day. Lives in [place]. REVIEW OF SYSTEMS: CONSTITUTIONAL: Positive for fever, chills, or night sweats. EYES: No blurred or double vision. ENT: No pain, hoarseness, sore throat, or dysphagia. CV: No chest pain, palpitations, or syncope. RESPIRATORY: No shortness of breath, dyspnea on exertion, or orthopnea. GI: No nausea, vomiting, diarrhea, or constipation. No abdominal pain. : No dysuria or hematuria. MUSCULOSKELETAL: Positive for back and neck pain. SKIN: No rash or pruritus. HEMATOLOGICAL: Denies bleeding. Positive for bruising. NEUROLOGICAL: Positive for weakness, headache. No numbness or tingling. PSYCH: Positive for anxiety and depression. PHYSICAL EXAMINATION: VITAL SIGNS: Temperature is 98.5 with a T-max of 102.8, pulse is 74, respiratory rate is 20, BP is 97/61. She is 94% on room air. GENERAL: This is a chronically ill-appearing female, in mild distress. HEENT: She is normocephalic and atraumatic. Pupils are equal and reactive to light. NECK: Supple. CV: Regular rate and rhythm. LUNGS: Clear anterior. ABDOMEN: Soft and nontender. Bowel sounds are positive. EXTREMITIES: No clubbing, cyanosis, or edema. SKIN: No rash. HEMATOLOGICAL: She has petechiae on her face and neck. No wet purpura in her mouth. NEUROLOGICAL: The patient is alert and oriented. Unable to assess neck movement secondary to pain. PERTINENT LABS AND X-RAYS: Current WBCs 2.0, hemoglobin 7.6, hematocrit 22.7, and platelet counts 10,000. She has 74% neutrophils, 2% bands, 22% lymphocytes. Sodium is 128, potassium is 3.8, chloride is 99, CO2 is 19, BUN is 24, creatinine is 0.64, lactic acid is 1.9, calcium is 7.6, bilirubin is 1.5, AST is 82, ALT is 26, alkaline phosphatase is 79, ammonia is 22. Troponin is 0.029. Serum total protein 6, albumin 2.9, globulin 3.1. ASSESSMENT: 1. Metastatic colon cancer, status post chemotherapy with Neulasta injection. 2. Chronic pancytopenia secondary to cirrhosis and hepatitis C. 3. Worsening thrombocytopenia, likely secondary to chemotherapy. 4. Fever. 5. Intractable neck pain. 6. Methicillin-resistant Staphylococcus aureus bacteremia. DISCUSSION: The patient has been given IV fluids and IV antibiotics for her bacteremia. Infectious Disease has been consulted for further assistance. The patient is not neutropenic with an ANC of 1.9 and is currently at her baseline white count. She did receive Neulasta injection, which can cause some bone pain, but should be resolved at this time as it has been almost 2 weeks. She does admit to a fall 3 weeks ago with neck pain present since that fall. She has imaging ordered. She has a LP ordered by Dr. Morataya. We will transfuse platelets due to her petechiae on her face and planned LP. We will add Ativan for muscle spasms and pain and some low-dose fentanyl as she has had some lower blood pressures. We will follow along with her hospital course. Thank you for the consult. Job ID: [id number] [facility]
[2019-02-19 17:29] LABS: Vancomycin, Trough 13.1 ug/mL
[2019-02-19] MEDS: Vancomycin HCl 1 GM in Premix Bag 1 BAG IVPB SCH (19:30)
[2019-02-19] MEDS ORDERED: diphenhydrAMINE 50 MG/ML VIAL IM PRN (19:45)
[2019-02-19] MEDS ORDERED: Promethazine HCl 25 MG/ML VIAL IM PRN (19:45)
[2019-02-19] MEDS ORDERED: Naloxone HCl 0.4 mg/ml Vial IV PRN (19:45)
[2019-02-19] MEDS ORDERED: Communication Order-Pharmacy FS SCH (19:45)
[2019-02-19] MEDS ORDERED: Fentanyl 100 MCG/2 ML VIAL SLOW IVP PRN (20:28)
--- NOTE | 2019-02-19 22:26 | MRI ---
MRI Cervical Spine W WO Con History: [Staphylococcic EMEA and severe neck pain] Comparison: None. Findings: Exam is limited due to patient motion. On the T1 weighted imaging sequence there are no abn ormal areas of marrow signal replacement. Modic type II endplate changes at C3/C4 and C4/C5. No abnormal enhancing intramedullary mass. Cord signal is normal. Appears to be metastatic disease in the lungs, incompletely evaluated. No abnormal paraspinal muscle enhancement. Limited level by level evaluation as below: C2/C3: No neural foraminal or spinal canal narrowing. Mild disc desiccation. C3/C4: Mild uncinate process hypertrophy. Mild facet arthrosis. No neural foraminal or spinal canal n arrowing. C4/C5: Circumferential disc osteophyte complex. Moderate bilateral neural foraminal narrowing. C5/C6: Low-grade circumferential disc osteophyte complex. Mild bilateral neural foraminal narrowing. C6/C7: Circumferential disc bulge. Mild facet arthrosis. Moderate bilateral neural foraminal narrowin g. Minimal effacement of the ventral CSF space. Impression: 1. Severely limited exam due to motion. No evidence for osseous metastatic disease or abnormal leptom eningeal enhancement. 2. Likely pulmonary metastatic disease.
--- NOTE | 2019-02-19 22:30 | MRI ---
MRI Thoracic Spine W WO Con History: [Staphylococcic anemia and thoracic spine pain.] Comparison: CT abdomen and pelvis 2 days prior Findings: On the T1 weighted imaging sequence there are no abnormal areas of marrow signal replacemen t. No evidence for metastatic disease. No abnormal leptomeningeal enhancement. Normal accumulation of fluid within the posterior paraspinal soft tissues at the thoracolumbar juncti on. Paraspinal musculature is without significant enhancement. No significant neural foraminal or spinal canal narrowing is appreciated given the limitation of motion. There is pulmonary metastatic d isease. Impression: Severely limited examination due to motion. Pulmonary metastatic disease and left layering pleural ef fusion. No spinal cord compression, osseous metastatic disease, or abnormal leptomeningeal enhancement
[2019-02-19] MEDS: fentaNYL Citrate/PF 2,000 MCG in Sodium Chloride 0.9% 60 ML IV PRN (22:40)
[2019-02-19] MEDS: tiZANidine HCl 4 MG TAB PO SCH (23:07)
[2019-02-19] MEDS: Zolpidem Tartrate 5 MG TAB PO PRN (23:17)
[2019-02-20] MEDS: Acetaminophen 325 MG TAB PO SCH ×3 (01:16→08:52)
[2019-02-20] MEDS: Sodium Chloride 0.9% 1,000 ML IV SCH ×3 (04:00→20:27)
[2019-02-20] MEDS: Vancomycin HCl 1 GM in Premix Bag 1 BAG IVPB SCH ×3 (04:02→20:26)
[2019-02-20 04:50] LABS: Anion Gap 9 mmol/L (10-20); BUN (Urea Nitrogen) 11 mg/dL (9.8-20.1); Calc. Creatinine Clearance 106 mL/min (70-130); Calcium 7.5 mg/dL (7.8-10.44); Carbon Dioxide 22 mmol/L (22-29); Chloride 106 mmol/L (98-107); Estimated GFR-MDRD 88; Glucose 113 mg/dL (70-105); Potassium 3.3 mmol/L (3.5-5.1); Sodium 134 mmol/L (136-145)
[2019-02-20 05:42] LABS: #Lymphocytes 0.4 thou/uL (1.20-3.40); #Monocytes 0.4 thou/uL (0.11-0.59); #Neutrophils 1.7 thou/uL (1.40-6.50); %Eosinophils 0.1 % (0.0-10.0); %Monocytes 14.4 % (0.0-10.0); %Neutrophils 69.5 % (42.0-75.0); Mean Corpuscular HGB CONC 32.2 g/dL (32.0-36.0); Mean Corpuscular Hemoglobin 29.1 pg (27.0-31.0); Mean Corpuscular Volume 90.2 fL (78.0-98.0); Mean Platelet Volume 18.2 fL (7.4-10.4); Platelet Count 22 thou/uL (130-400); RBC Distribution Width 19.1 % (11.5-14.5); Red Blood Cell (RBC) Count 2.41 mill/uL (4.20-5.40); White Blood Cell (WBC) Count 2.5 thou/uL (4.8-10.8)
--- NOTE | 2019-02-20 08:42 | PDOC.EVN ---
Event Note - Event Note Event Note: Plan removal infected mediport later today.
--- NOTE | 2019-02-20 09:14 | CON ---
DATE OF CONSULTATION: 02/19/2019 REASON FOR CONSULTATION: Bacteremia. 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 They were T3 N1 lesions and she had resection, given chemotherapy through a port starting in August 2014. In 2014, she developed anastomotic stricture. She had a transient loop ileostomy after resection of the area of stricture and then the ileostomy was taken down after the anastomosis was completed. Following that episode, the patient had to switch to a different oncologist and different doctors because of change in insurance policy and she was cared for in [place]; unfortunately, was diagnosed with metastatic cancer in the intervening years and was getting treatment with Xeloda. In December 2018, she was admitted with neutropenic fever and pancytopenia, possible pneumonia was identified. She was given cefepime, which was eventually was transitioned to levofloxacin and now she presents with generalized malaise, fever, progressive neck and thoracic spine pain over the past 2 or 3 days before admission. The initial exam with BP 164, pulse 90, respirations 22, temperature 102.7. She was agitated, complaining of generalized pain. Neck was described as supple. Chest was clear. Heart exam with regular rate and rhythm. White cell count was 2.5 and 2, hemoglobin 9.2, platelets 12,000 on arrival, 74% neutrophils, total neutrophil count approximately 1400. Chemistry with a creatinine of 0.74, bilirubin 1.5, AST 82, albumin 2.9. Currently, Ms. Muhammad is in distress from neck pain. She has a hard time in moving because of that. She has little bit of headaches, some thoracic spine pain, which is moderate, but no lumbosacral spine pain. She has some shoulder tenderness. The anterior chest is not tender. She has no visual symptoms. No sore throat, odynophagia, or dysphagia. No dental pain. She has no sputum production. No abdominal pain. The patient is voiding in the toilet or in the urinal in bed. She has a port in the right subclavian location. PAST MEDICAL HISTORY: Includes hepatitis C, treated in the with reported cure; cirrhosis, history of substance abuse in the past, colon cancer synchronous in 2 different locations, status post colectomy and reanastomosis with a negative PET scan, but then subsequently diagnosed with metastatic colon cancer; it is not clear if the mets are in the liver or if she has also lung mets identified; hypothyroidism, intestinal stricture after the colon cancer resection, which had required ileostomy and then resection of the involved area of stricture and then reanastomosis. She also has a history of right ankle surgery. SOCIAL HISTORY: . Still smoking. FAMILY HISTORY: Noncontributory. ALLERGIES: NONE. CURRENT MEDICATIONS: Include; 1. Tylenol. 2. Sublimaze. 3. Ativan. 4. Promethazine. 5. . 6. Vancomycin 1 gm q.12. PHYSICAL EXAMINATION: VITAL SIGNS: Temperature max 102.8, blood pressure 120/60, pulse 61, respirations 18 to 20, O2 saturation is 100%. SKIN: Shows the right subclavian port, which is not accessed and there is no erythema or tenderness. There is a right upper extremity I believe it is a midline. The patient is voiding in the toilet or in the urinal. No petechia or purpura. No lymphadenopathy. HEENT: Ocular movements conjugate. Sclerae white. Pupils are equal. Conjunctivae normal. Nasal passages patent. Ear examination normal. Oral cavity moist, quite a few teeth in place. SPINE: She has marked limitation in range of motion of the C-spine/neck because of pain. She has tenderness on palpation in the upper thoracic spine. No shoulder tenderness. LUNGS: Clear to auscultation and percussion. HEART: S1 and S2. Regular rate. No S3 or S4. ABDOMEN: Soft, not distended or tender. No ascites. No bladder distention. MUSCULOSKELETAL: No other joint inflammatory process noted. Range of motion of hips, knees, and ankles is preserved. No edema. Pulses 1+ in dorsalis pedis. Plantar responses are flexor. NEUROLOGIC: She is awake, appears in distress from C-spine pain. LABORATORY DATA: White cell count is 12.5 and 12.0, hemoglobin 7.6, MCV 90, platelets 10,000 with 74% neutrophils, 2% bands, total neutrophil count is around 1400. Chemistry has been discussed above. Bilirubin is 1.5. Urinalysis with 4-6 wbc's. Microbiology with multiple blood samples with MRSA including from port as well as peripheral sources. She has a urine culture positive for MRSA, but in small amounts indicative of probably hematogenous origin of the organism, rather than a primary urinary process. ASSESSMENT: 1. Metastatic colon cancer to liver at least, may be lungs as well. 2. Cavitary lesions in lungs, which could be related to metastatic colon cancer or to hematogenous Staphylococcus aureus/methicillin-resistant Staphylococcus aureus pneumonia. 3. Severe neck pain, progressing rapidly over the past few days with possible diskitis and osteomyelitis of the C-spine, thoracic spine involvement is possible as well. 4. Likely colonization of the port by methicillin-resistant Staphylococcus aureus. DISCUSSION: The main reason for admission is the MRSA process. This originates most likely in the port, which needs to be removed. I have placed a General Surgery consultation for this. I do not think it can be removed now because she will need platelet administration before removal of the device. An MRI of the C-spine has been ordered to be done today to confirm diagnosis and to see if there is compromise of the spinal cord, which would merit Neurosurgery consultation. Thoracic spine will also be assessed. I have increased the dose of vancomycin and we will obtain a vancomycin trough prior to the next dose scheduled and we have also placed a consult for Anesthesia for PRESCHOOL DIRECTOR analgesia. Other sites of potential involvement include the right ankle, which is a bit swollen and very tender on range of motion. After in the acute phase of treatment, then she will need protracted treatment, probably at least 6 weeks in view of the likely C-spine involvement. Meningitis is not likely. She is oriented. She has good recall. Speech is normal and the main reason for her stiffness in the neck is because of the pain induced by movement. Job ID: [id number]
[2019-02-20] MEDS ORDERED: Bupivacaine/Epinephrine 0.25% 30 ML VIAL ONE (10:01)
[2019-02-20] MEDS ORDERED: Lidocaine 2% PF 5 ML VIAL ONE (10:05)
[2019-02-20 10:39] LABS: Vancomycin, Trough 14.2 ug/mL
[2019-02-20] MEDS: Acetaminophen 325 MG TAB PO PRN (13:27)
[2019-02-20] MEDS ORDERED: PROPOFOL 200 MG/20 ML VIAL ONE (14:51)
--- NOTE | 2019-02-20 17:31 | OP ---
DATE OF PROCEDURE: 02/20/2019 PREOPERATIVE DIAGNOSIS: Bacteremia, presumed infected MediPort. POSTOPERATIVE DIAGNOSIS: Bacteremia, presumed infected MediPort. PROCEDURE PERFORMED: Removal of tunneled central line subcutaneous port (MediPort). ANESTHESIA: General. ESTIMATED BLOOD LOSS: Minimal. COMPLICATIONS: None. SPECIMENS: None. FINDINGS: None. DESCRIPTION OF PROCEDURE: The patient was taken to the operating room and laid supine on the operating room table after sedation was obtained. The upper neck and chest over the MediPort sites were prepped and draped in a sterile fashion. Local anesthetic was infiltrated under the incision. The incision was reopened. The MediPort was able to be dissected away from the chest wall and removed. The tunnel going up towards the neck was oversewn using Vicryl suture. The wound was irrigated and closed using 3-0 Vicryl, 4-0 Monocryl, and Dermabond. The patient was sent to Recovery in stable condition. All instrument counts, needle counts, and lap counts were correct. Job ID: [id number]
--- NOTE | 2019-02-20 19:18 | PRG ---
DATE OF SERVICE: 02/20/2019 SUBJECTIVE: Ms. 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 She complains of pain in the left flank area. She is voiding in the toilet reportedly, but needs in and out catheterization reportedly. OBJECTIVE: HEENT: Ocular movements conjugate. NECK: Tender in the neck area, but not as much as yesterday at least on the exam. LUNGS: Symmetric. Clear breath sounds. HEART: S1 and S2, regular rate. No S3 or S4. ABDOMEN: Soft. Not distended. LABORATORY DATA: The white cell count is 2.5, hemoglobin 7.0, platelets 22,000 with 69% neutrophils. Sodium 134, creatinine 0.69. Dr. Brantley has removed the port. Again, the MRI of thoracic and cervical spine, images are not technically adequate for any interpretation. ASSESSMENT AND DISCUSSION: Metastatic colon cancer to liver at least, maybe lungs as well. Cavitary lesion in the lungs, which could be related to metastatic colon cancer or hematogenous Staphylococcus aureus pneumonia. Severe neck pain with concern for diskitis, osteomyelitis. The other possibility would be a metastatic lesion. We will need to obtain good images and we will see if we can get Anesthesia to sedate the patient during the procedure, repeat attempt. We will try some Toradol for pain control in addition to the analgesia with opioids. Job ID: [id number]
[2019-02-20] MEDS: Ketorolac Tromethamine 30 MG/ML VIAL IVP PRN (20:24)
[2019-02-20] MEDS: diphenhydrAMINE 50 MG/ML VIAL IVP PRN (20:26)
[2019-02-20] MEDS: tiZANidine HCl 4 MG TAB PO SCH (20:26)
[2019-02-20] MEDS: fentaNYL Citrate/PF 2,000 MCG in Sodium Chloride 0.9% 60 ML IV PRN (23:29)
[2019-02-21] MEDS: Sodium Chloride 0.9% 1,000 ML IV SCH ×3 (02:26→15:29)
[2019-02-21] MEDS: diphenhydrAMINE 50 MG/ML VIAL IVP PRN ×2 (04:51→20:45)
[2019-02-21] MEDS: Ketorolac Tromethamine 30 MG/ML VIAL IVP PRN ×3 (04:51→20:45)
[2019-02-21] MEDS: Vancomycin HCl 1 GM in Premix Bag 1 BAG IVPB SCH ×3 (04:53→20:41)
[2019-02-21 05:36] LABS: Platelet Count 17 thou/uL (130-400)
[2019-02-21 05:38] LABS: Anion Gap 9 mmol/L (10-20); BUN (Urea Nitrogen) 11 mg/dL (9.8-20.1); Calc. Creatinine Clearance 76 mL/min (70-130); Calcium 7.7 mg/dL (7.8-10.44); Carbon Dioxide 23 mmol/L (22-29); Chloride 107 mmol/L (98-107); Estimated GFR-MDRD 59; Glucose 120 mg/dL (70-105); Potassium 3.5 mmol/L (3.5-5.1); Sodium 135 mmol/L (136-145)
[2019-02-21 06:15] LABS: #Lymphocytes 0.3 thou/uL (1.20-3.40); #Monocytes 0.2 thou/uL (0.11-0.59); #Neutrophils 1.1 thou/uL (1.40-6.50); %Eosinophils 0.5 % (0.0-10.0); %Lymphocytes 18.3 % (21.0-51.0); %Monocytes 13.4 % (0.0-10.0); %Neutrophils 67.8 % (42.0-75.0); Anisocytosis SLIGHT = 6-15 cells (100X) (0-5/hpf); Elliptocytes SLIGHT = 2-5 cells (100X) (0-1/hpf); Hemoglobin 11.4 g/dL (12.0-16.0); MDiff Complete? YES; Mean Corpuscular HGB CONC 31.3 g/dL (32.0-36.0); Mean Corpuscular Hemoglobin 28.6 pg (27.0-31.0); Mean Corpuscular Volume 91.5 fL (78.0-98.0); Mean Platelet Volume 17.1 fL (7.4-10.4); Platelet Morphology Comment Appears Decreased; RBC Distribution Width 19.8 % (11.5-14.5); Red Blood Cell (RBC) Count 3.98 mill/uL (4.20-5.40); White Blood Cell (WBC) Count 1.6 thou/uL (4.8-10.8)
[2019-02-21] MEDS: tiZANidine HCl 4 MG TAB PO SCH (20:43)
[2019-02-21] MEDS: fentaNYL Citrate/PF 2,000 MCG in Sodium Chloride 0.9% 60 ML IV PRN (23:03)
[2019-02-22] MEDS: Sodium Chloride 0.9% 1,000 ML IV SCH ×3 (02:25→18:54)
[2019-02-22] MEDS: Ketorolac Tromethamine 30 MG/ML VIAL IVP PRN ×2 (02:27→08:42)
[2019-02-22] MEDS: diphenhydrAMINE 50 MG/ML VIAL IVP PRN (02:28)
[2019-02-22] MEDS: Vancomycin HCl 1 GM in Premix Bag 1 BAG IVPB SCH (02:28)
[2019-02-22 09:39] LABS: Anion Gap 11 mmol/L (10-20); BUN (Urea Nitrogen) 18 mg/dL (9.8-20.1); Calc. Creatinine Clearance 25 mL/min (70-130); Calcium 7.9 mg/dL (7.8-10.44); Carbon Dioxide 20 mmol/L (22-29); Chloride 107 mmol/L (98-107); Estimated GFR-MDRD 17; Glucose 102 mg/dL (70-105); Potassium 3.8 mmol/L (3.5-5.1); Sodium 134 mmol/L (136-145)
[2019-02-22 09:52] LABS: Band 11 % (5-11); Eosinophils 6 % (0-10); Hemoglobin 8.1 g/dL (12.0-16.0); Large Platelets SLIGHT; Lymphocytes 14 % (21-51); MDiff Complete? YES; Mean Corpuscular HGB CONC 30.9 g/dL (32.0-36.0); Mean Corpuscular Hemoglobin 28.2 pg (27.0-31.0); Mean Corpuscular Volume 91.2 fL (78.0-98.0); Mean Platelet Volume 16.1 fL (7.4-10.4); Monocytes 12 % (0-10); Neutrophil 56 % (42-75); Platelet Count 35 thou/uL (130-400); Platelet Morphology Comment Appears Decreased; Poikilocytosis SLIGHT = 6-15 cells (100X) (0-5/hpf); RBC Distribution Width 19.5 % (11.5-14.5); Red Blood Cell (RBC) Count 2.87 mill/uL (4.20-5.40); White Blood Cell (WBC) Count 2.2 thou/uL (4.8-10.8)
[2019-02-22 11:45] LABS: Vancomycin, Trough 42.3 ug/mL
[2019-02-22] MEDS ORDERED: Vancomycin HCl 1 GM in Premix Bag 1 BAG IVPB SCH (12:00)
[2019-02-22] MEDS ORDERED: Fentanyl 100 MCG/2 ML VIAL ONE (12:02)
[2019-02-22] MEDS ORDERED: Midazolam HCl 2 mg/2 ml Vial ONE (12:02)
[2019-02-22] MEDS ORDERED: SUGAMMADEX SODIUM 500 MG/5 ML VIAL ONE (13:23)
[2019-02-22] MEDS ORDERED: SUGAMMADEX SODIUM 200 MG/2 ML VIAL ONE (13:23)
--- NOTE | 2019-02-22 14:30 | MRI ---
MRI CERVICAL SPINE WITH AND WITHOUT CONTRAST: INDICATION: History of stage IV colon cancer with fever and neck pain after fall 2 1/2 weeks ago; his tory of an infected port. TECHNIQUE: Multiplanar multisequence MR images were obtained of the cervical spine with and without c ontrast utilizing 15 mL of MultiHance. The exam is compared to a prior MRI of the cervical spine dated 02/19/2019 FINDINGS: There is diffuse low to intermediate signal intensity involving the bone marrow of the cervical spine which can be seen with red marrow hyperplasia. There is no focal osseous metastatic lesion identified. There is mild multilevel disc degenerative disease. Visualized aspects of the posterior f rut appear within normal limits. There is mild mucosal thickening within the sphenoid sinus. The spinal cord demonstrates a normal signal intensity and contour without evidence of abnormal enhance ment. There is mild edema with enhancement involving the prevertebral soft tissues extending from C1 through the visualized upper thoracic spine suspicious for retropharyngeal phlegmon. At C2-3, there is moderate right and mild left facet joint degenerative change. There is no appreciab le central canal or neural foraminal narrowing. At C3-4, there is mild facet joint degenerative change with no appreciable central canal or neural fo raminal narrowing. At C4-5, there is uncovertebral hypertrophy and facet joint degenerative change inducing mild right n eural foraminal narrowing. At C5-6, there is uncovertebral hypertrophy and a broad-based disc bulge but no appreciable central c anal narrowing. There is mild right neural foraminal narrowing. At C6-7, there is broad-based bulge with facet hypertrophy inducing mild bilateral neural foraminal n arrowing. At C7-T1, there is no appreciable central canal or foraminal narrowing. There is metastatic disease involving the lung. IMPRESSION: 1. Fluid signal intensity with enhancement involving the retropharyngeal soft tissues is suspicious f or retropharyngeal phlegmon. 2. Multilevel spondylosis of the cervical spine with mild neural foraminal narrowing. 3. Pulmonary metastatic disease. 4. Findings called to Dr. Palacios at 4:30 PM on February 22, 2019. Transcribed Date/Time: 02/22/2019 3:07 PM
[2019-02-22] MEDS: tiZANidine HCl 4 MG TAB PO SCH (20:40)
[2019-02-22] MEDS: Zolpidem Tartrate 5 MG TAB PO PRN (20:45)
[2019-02-22 23:27] LABS: Vancomycin, Trough 42.3 ug/mL
[2019-02-23] MEDS: Sodium Chloride 0.9% 1,000 ML IV SCH ×4 (01:54→18:35)
[2019-02-23 08:40] LABS: Band 5 % (5-11); Eosinophils 2 % (0-10); Hemoglobin 6.1 g/dL (12.0-16.0); Lymphocytes 29 % (21-51); MDiff Complete? YES; Mean Corpuscular HGB CONC 31.7 g/dL (32.0-36.0); Mean Corpuscular Hemoglobin 28.8 pg (27.0-31.0); Mean Platelet Volume 12.6 fL (7.4-10.4); Monocytes 23 % (0-10); Neutrophil 41 % (42-75); Nucleated RBC 1 % (0); Platelet Count 32 thou/uL (130-400); Platelet Morphology Comment Appears Decreased; RBC Distribution Width 19.2 % (11.5-14.5); Red Blood Cell (RBC) Count 2.13 mill/uL (4.20-5.40); White Blood Cell (WBC) Count 1.5 thou/uL (4.8-10.8)
[2019-02-23 08:43] LABS: Anion Gap 11 mmol/L (10-20); BUN (Urea Nitrogen) 24 mg/dL (9.8-20.1); Calc. Creatinine Clearance 19 mL/min (70-130); Calcium 7.5 mg/dL (7.8-10.44); Carbon Dioxide 18 mmol/L (22-29); Chloride 111 mmol/L (98-107); Estimated GFR-MDRD 12; Glucose 128 mg/dL (70-105); Potassium 3.9 mmol/L (3.5-5.1); Sodium 136 mmol/L (136-145)
[2019-02-23 11:06] LABS: Vancomycin, Random 36.5 ug/mL (See Comment)
[2019-02-23 16:02] LABS: Reticulocyte Count 1.6 % (0.5-1.5)
--- NOTE | 2019-02-23 16:28 | PRG ---
DATE OF SERVICE: 02/23/2019 SUBJECTIVE: The patient still with quite a bit of pain in the neck area, mildly dyspneic. No abdominal pain. OBJECTIVE: VITAL SIGNS: T-max 98.0, blood pressure 130/70, pulse 72, respirations 18, O2 saturation 99. GENERAL: Awake, little bit drowsy. NECK: Marked neck tenderness with decreased range of motion. HEART: S1 and S2, regular rate. ABDOMEN: Soft. LUNGS: Symmetric breath sounds, diminished at the bases with faint basilar crackles. LABORATORY DATA: White cell count is 1.5 with 41% neutrophils, 5% bands, 22% monocytes. Creatinine is up to 3.84. Sodium 136. Vancomycin random level was 36.5. Microbiology unchanged. Cervical spine MRI fluid signal intensity with enhancement in the retropharyngeal soft tissues suspicious for retropharyngeal phlegmon, pulmonary metastatic disease. ENT has evaluated the patient. They believe that she is not yet requiring surgical debridement. May need followup imaging study. ASSESSMENT AND DISCUSSION: Metastatic colon cancer of liver and lungs, now methicillin-resistant Staphylococcus aureus bacteremia with retropharyngeal phlegmon. No evidence of diskitis or osteomyelitis. The options for management will be to continue with frequent vancomycin level checks and then eventual resumption of treatment. Nephrology consultation. IV fluids. Repeat imaging studies of C-spine down the road or neck actually soft tissues with ENT re-evaluation and then decision as to the need for surgical debridement of the retropharyngeal abscess, Palliative Care consult might be considered as well in view of the metastatic malignancy, that to be discussed with the patient and family members. Job ID: [id number]
[2019-02-23 16:37] LABS: ALT (SGPT) 14 U/L (8-55); AST (SGOT) 25 U/L (5-34); Albumin 2.3 g/dL (3.5-5.0); Alkaline Phosphatase 146 U/L (40-150); Bilirubin, Direct 0.5 mg/dL (0.1-0.3); Bilirubin, Total 0.7 mg/dL (0.2-1.2); Protein, Total 5.2 g/dL (6.0-8.3)
[2019-02-23] MEDS: tiZANidine HCl 4 MG TAB PO SCH (21:06)
[2019-02-23] MEDS: diphenhydrAMINE 50 MG/ML VIAL IVP PRN (21:07)
[2019-02-23] MEDS: fentaNYL Citrate/PF 2,000 MCG in Sodium Chloride 0.9% 60 ML IV PRN (21:20)
--- NOTE | 2019-02-23 22:04 | CON ---
DATE OF CONSULTATION: This is a followup consultation on this patient and please see the consult dated 02/19/19 for details. HISTORY OF PRESENT ILLNESS: This patient has a metastatic colon cancer and had chemotherapy approximately 2-1/2 weeks ago. Details are not known to me, but it could have been Xeloda. The patient has chronic pancytopenia based on cirrhosis. The patient had received red cells and platelet transfusion in the past. The patient is in the hospital with MRSA infection. Recently, there is questionable retropharyngeal abscess based on MRI in that area. The patient is on vancomycin. Dose adjusted according to vancomycin level. Her hemoglobin decreased today to 6.1 g and platelet count today is 32,000. count is 1500 with 46% granulocytes. The patient denies bleeding from any site. Her creatinine is 3.84 and BUN is . ASSESSMENT AND RECOMMENDATION: Her anemia is multifactorial, likely from ongoing infection, cirrhosis, and renal insufficiency. She does not give history of bleeding. Hemolysis is unlikely. For today she will receive 2 units of packed red blood cells. Other symptomatic and supportive measures including antibiotics need to be continued. ENT is to see this patient regarding retropharyngeal abscess. Job ID: [id number]
[2019-02-23] MEDS: Acetaminophen 325 MG TAB PO PRN (22:52)
[2019-02-24] MEDS: diphenhydrAMINE 50 MG/ML VIAL IVP PRN ×2 (00:42→21:37)
[2019-02-24 07:32] LABS: Hemoglobin 7.9 g/dL (12.0-16.0); Mean Corpuscular HGB CONC 33.6 g/dL (32.0-36.0); Mean Corpuscular Hemoglobin 29.7 pg (27.0-31.0); Mean Corpuscular Volume 88.4 fL (78.0-98.0); Mean Platelet Volume 8.9 fL (7.4-10.4); Platelet Count 41 thou/uL (130-400); RBC Distribution Width 18.1 % (11.5-14.5); Red Blood Cell (RBC) Count 2.67 mill/uL (4.20-5.40); White Blood Cell (WBC) Count 1.7 thou/uL (4.8-10.8)
[2019-02-24 07:35] LABS: Anion Gap 10 mmol/L (10-20); BUN (Urea Nitrogen) 28 mg/dL (9.8-20.1); Calc. Creatinine Clearance 16 mL/min (70-130); Calcium 7.6 mg/dL (7.8-10.44); Carbon Dioxide 18 mmol/L (22-29); Chloride 108 mmol/L (98-107); Estimated GFR-MDRD 10; Glucose 96 mg/dL (70-105); Potassium 3.7 mmol/L (3.5-5.1); Sodium 132 mmol/L (136-145)
[2019-02-24] MEDS ORDERED: Milk Of Magnesia 30 ML UDCUP PO SCH (09:15)
[2019-02-24 10:02] LABS: Band 6 % (5-11); Eosinophils 2 % (0-10); Lymphocytes 30 % (21-51); Monocytes 12 % (0-10); Neutrophil 50 % (42-75)
[2019-02-24 10:03] LABS: Bite Cells SLIGHT = 2-5 cells (100X) (0-1/hpf); MDiff Complete? YES; Ovalocytes MODERATE= 6-15 cells (100X) (0-1/hpf); Platelet Morphology Comment Appears Decreased; Polychromasia SLIGHT = 2-3 cells (100X) (0-2/hpf); Schistocytes SLIGHT = 2-5 cells (100X) (0-1/hpf)
[2019-02-24] MEDS: Docusate 100 MG CAP PO SCH ×2 (10:34→21:35)
[2019-02-24 11:31] LABS: Vancomycin, Random 32.8 ug/mL (See Comment)
[2019-02-24] MEDS: Acetaminophen 500 MG TAB PO SCH ×2 (17:35→21:35)
[2019-02-24] MEDS: fentaNYL Citrate/PF 2,000 MCG in Sodium Chloride 0.9% 60 ML IV PRN (17:36)
[2019-02-24] MEDS: fentaNYL 50 mcg/hour Patch TD SCH (17:38)
--- NOTE | 2019-02-24 18:11 | PRG ---
DATE OF SERVICE: 02/24/2019 SUBJECTIVE: Ms. Muhammad has noticed some improvement in the neck pain, although it is still quite prominent, but at least the patient initiated analgesia and is working better. She is not dyspneic and has no abdominal pain. She is constipated as expected from all the opioids that she is getting. OBJECTIVE: VITAL SIGNS: T-max 99.2, blood pressure 150/82, pulse 89, respirations 18, O2 saturation 98%. GENERAL: Chronically ill appearing, awake, oriented. HEENT: Ocular movements conjugate. Oral cavity appears normal. NECK: Some tenderness in neck area, better range of motion. The tenderness is more localized in the lateral aspect, but is really felt deep inside. LUNGS: Symmetric air entry. HEART: S1 and S2. Regular rate. ABDOMEN: Soft, nondistended, tender. GENITOURINARY: She is voiding in the toilet without difficulty. No bladder distention. LABORATORY DATA: White cell count 1.7, hemoglobin 7.9, platelets 41,000 with 50% neutrophils, 6% bands, 12% monocytes. Creatinine is up to even further 4.64, sodium 132. ASSESSMENT AND DISCUSSION: Metastatic colon cancer to liver and lungs with methicillin-resistant Staphylococcus aureus bacteremia and retropharyngeal phlegmon. Also has developed progressive renal dysfunction, felt to be due to hemodynamically mediated dysfunction plus-minus drug-induced renal insufficiency. Toradol has been discontinued. She continues on vancomycin, although vancomycin is on hold right now. We will add linezolid for now. I think we are going to stay away from the vancomycin. The issue of surgical debridement has been followed by PAWAN Grewal. Job ID: [id number]
[2019-02-24] MEDS: Linezolid 600 MG in Premix Bag 1 BAG IVPB SCH (21:34)
[2019-02-24] MEDS: tiZANidine HCl 4 MG TAB PO SCH (21:36)
[2019-02-24] MEDS: Sodium Chloride 0.9% 1,000 ML IV SCH (21:37)
[2019-02-25] MEDS: Acetaminophen 500 MG TAB PO SCH ×4 (03:37→20:07)
[2019-02-25 04:44] LABS: Anion Gap 11 mmol/L (10-20); BUN (Urea Nitrogen) 32 mg/dL (9.8-20.1); Calc. Creatinine Clearance 14 mL/min (70-130); Calcium 8.1 mg/dL (7.8-10.44); Carbon Dioxide 19 mmol/L (22-29); Chloride 108 mmol/L (98-107); Estimated GFR-MDRD 8; Glucose 108 mg/dL (70-105); Potassium 4.8 mmol/L (3.5-5.1); Sodium 133 mmol/L (136-145)
[2019-02-25] MEDS ORDERED: fentaNYL Citrate/PF 2,000 MCG in Sodium Chloride 0.9% 60 ML IV PRN (06:00)
[2019-02-25 06:45] LABS: Hemoglobin 7.8 g/dL (12.0-16.0); Mean Corpuscular HGB CONC 32.3 g/dL (32.0-36.0); Mean Corpuscular Hemoglobin 28.9 pg (27.0-31.0); Mean Corpuscular Volume 89.6 fL (78.0-98.0); Mean Platelet Volume 9.5 fL (7.4-10.4); Platelet Count 46 thou/uL (130-400); RBC Distribution Width 17.9 % (11.5-14.5)
[2019-02-25] MEDS: Docusate 100 MG CAP PO SCH ×2 (09:12→20:08)
[2019-02-25 09:19] LABS: Band 11 % (5-11); Hypochromia SLIGHT = 6-15 cells (100X) (0-5/hpf); Lymphocytes 41 % (21-51); MDiff Complete? YES; Monocytes 3 % (0-10); Neutrophil 45 % (42-75); Ovalocytes MODERATE= 6-15 cells (100X) (0-1/hpf); Platelet Morphology Comment Appears Decreased; Polychromasia SLIGHT = 2-3 cells (100X) (0-2/hpf); Schistocytes SLIGHT = 2-5 cells (100X) (0-1/hpf); Tear Drops SLIGHT = 2-5 cells (100X) (0-1/hpf)
--- NOTE | 2019-02-25 09:34 | CT ---
CT NECK SOFT TISSUES NONCONTRAST: 02/25/2019 HISTORY: 58-year-old female with neck pain and bacteremia. Abnormal MRI. FINDINGS: There is intermediate-low attenuation in the retropharyngeal space from approximately C2 to at least C5-6 level. At the level of the supraglottic larynx, there is fluid collection measures approximately 3.5 cm transverse x 0.5 cm AP. Lack of IV contrast makes it difficult to determine whether the fluid in the retropharyngeal space re presents abscess, phlegmon, or effusion. There is mild edema throughout the superficial and deep soft tissue planes of the neck diffusely, sug gestive of anasarca. There are numerous noncalcified pulmonary nodules in the bilateral upper lobes. Thoracic aorta is ectatic and tortuous. Cluster of abnormally enlarged supraclavicular lymph n odes on the left. No destructive osseous lesion. IMPRESSION: 1.) Fluid in the retropharyngeal space. Without IV contrast, it is difficult to determine whether thi s represents retropharyngeal effusion, phlegmon, or abscess. 2) extensive pulmonary metastases. 3) left supraclavicular lymphadenopathy. 4) recommend short interval follow-up CT as clinically indicated.
[2019-02-25] MEDS: Linezolid 600 MG in Premix Bag 1 BAG IVPB SCH ×2 (10:02→20:19)
[2019-02-25] MEDS: Ondansetron PF 4 MG/2 ML Vial IVP PRN (14:49)
[2019-02-25] MEDS ORDERED: Magnesium Citrate 300 ML BOT PO SCH (18:15)
[2019-02-25] MEDS ORDERED: DULoxetine 30 MG CAP PO SCH (20:00)
[2019-02-25] MEDS: tiZANidine HCl 4 MG TAB PO SCH (20:08)
[2019-02-25] MEDS: Promethazine HCl 25 MG in Sodium Chloride 0.9% 50 ML IVPB PRN (23:25)
--- NOTE | 2019-02-26 00:06 | CON ---
DATE OF CONSULTATION: CONSULTING PHYSICIAN: Sonja Aquino MD REASON FOR CONSULTATION: Acute kidney injury. IMPRESSION: 1. Acute kidney injury. This is likely multifactorial, mediated acute tubular necrosis including, but not limited to the following potential etiologies: a. Nephrotoxic effect of medications in this case, possible supratherapeutic level of vancomycin plus or minus nonsteroidal anti-inflammatory drugs in this case as said. b. Cytokine mediated injury in the context of infection. c. Hemodynamically mediated acute tubular necrosis as evidenced by relative hypotension a couple of days during this hospitalization. PLAN: 1. The patient seems to be experiencing symptoms of hypervolemia as she is beginning to feel bloated and congested. Therefore, we will discontinue IV fluid. 2. Renally dose all medications for low GFR. 3. Avoid potentially nephrotoxic agents. 4. If the renal function continues to decline at this phase within the next 24-48 hours, the patient will require renal replacement therapy (hemodialysis at least on a temporary basis). 5. Further management will be dependent on the clinical course. HISTORY OF PRESENT ILLNESS: History is that of 58-year-old female patient with metastatic colonic CA, recently had chemotherapy, presented here with fever, back and neck pain, noted to be febrile and neutropenic with a temperature of up to 101.6. On presentation, the patient noted with normal renal function with a creatinine of about 0.6-0.8. However, over the course of hospitalization, creatinine has steadily gone up from the 10th 0.97 to 2.91, 3.84 and 4.64. At this time of dictation, creatinine has gone up to 5.39. The patient now experiencing bloated and some shortness of breath on minimal exertion. The patient also has noted decrease in urinary output. As a result of all these findings, decision has not been taken to involve Renal in the management of this case. PAST MEDICAL HISTORY: Significant for metastatic colonic CA status post recent chemotherapy, hepatitis C, polysubstance abuse, depression, chronic pain, hypothyroidism, attention deficit disorder, and restless legs syndrome. MEDICATIONS: Reviewed as documented on [facility]. SOCIAL HISTORY: . Tobacco use. Remote history of illicit drug use. ALLERGIES: NO KNOWN DRUG ALLERGIES. FAMILY HISTORY: No family history of kidney disease. REVIEW OF SYSTEMS: As documented in the body of the history, all other systems were reviewed and found not to be significantly related to present illness. PHYSICAL EXAMINATION: SKIN: The patient noted with some diffuse rash especially in the upper part of the body. VITAL SIGNS: Noted with the following vital signs; afebrile, temperature 97.8, pulse 80, respiratory rate of 18, O2 saturations of 98% with blood pressure 157/82. HEENT: Unremarkable. Moist oral mucosa. NECK: Supple. Neck showed some elevated jugular distention and some neck tenderness. CARDIOVASCULAR: First and second heart sounds were heard. RESPIRATORY: Clear to auscultation anteriorly. DIGESTIVE: Revealed an obese abdomen. EXTREMITIES: Showed peripheral edema about 2+. LYMPHATICS: No peripheral lymphadenopathy. SUMMARY: A 58-year-old female patient who is experiencing worsening renal failure, likely acute tubular necrosis of multifactorial etiology. Thank you for this consultation. We will follow with you. Job ID: [id number]
[2019-02-26] MEDS: Acetaminophen 500 MG TAB PO SCH ×3 (02:00→13:31)
[2019-02-26] MEDS: Levothyroxine Sodium 50 MCG TAB PO SCH (06:41)
[2019-02-26 08:07] LABS: #Lymphocytes 0.4 thou/uL (1.20-3.40); #Monocytes 0.3 thou/uL (0.11-0.59); #Neutrophils 1.8 thou/uL (1.40-6.50); %Basophils 0.5 % (0.0-1.0); %Eosinophils 0.5 % (0.0-10.0); %Lymphocytes 16.5 % (21.0-51.0); %Monocytes 12.6 % (0.0-10.0); %Neutrophils 69.8 % (42.0-75.0); Hemoglobin 8.2 g/dL (12.0-16.0); Mean Corpuscular HGB CONC 31.2 g/dL (32.0-36.0); Mean Corpuscular Hemoglobin 27.8 pg (27.0-31.0); Mean Platelet Volume 7.1 fL (7.4-10.4); Platelet Count 52 thou/uL (130-400); RBC Distribution Width 17.6 % (11.5-14.5); Red Blood Cell (RBC) Count 2.96 mill/uL (4.20-5.40); White Blood Cell (WBC) Count 2.6 thou/uL (4.8-10.8)
[2019-02-26 08:22] LABS: Anion Gap 12 mmol/L (10-20); BUN (Urea Nitrogen) 36 mg/dL (9.8-20.1); Calc. Creatinine Clearance 13 mL/min (70-130); Carbon Dioxide 17 mmol/L (22-29); Chloride 107 mmol/L (98-107); Estimated GFR-MDRD 7; Glucose 86 mg/dL (70-105); Potassium 4.5 mmol/L (3.5-5.1); Sodium 131 mmol/L (136-145)
[2019-02-26] MEDS: DULoxetine 30 MG CAP PO SCH (09:19)
[2019-02-26] MEDS: Cepastat Lozenges 1 LOZ PO SCH ×4 (09:19→21:05)
[2019-02-26] MEDS: Docusate 100 MG CAP PO SCH ×2 (09:19→21:04)
[2019-02-26] MEDS: Linezolid 600 MG in Premix Bag 1 BAG IVPB SCH ×2 (09:20→21:02)
[2019-02-26] MEDS: Milk Of Magnesia 30 ML UDCUP PO SCH (09:20)
[2019-02-26] MEDS ORDERED: Fleet Enema 133 ML BOT FS SCH (09:45)
[2019-02-26] MEDS: Ondansetron PF 4 MG/2 ML Vial IVP PRN (11:32)
--- NOTE | 2019-02-26 18:40 | PRG ---
DATE OF SERVICE: 02/26/2019 SUBJECTIVE: The patient is seen and examined. Moved bowel today. Feeling better. OBJECTIVE: VITAL SIGNS: Noted with the following vital signs, afebrile, temperature 97.4, pulse 74, respiratory rate of 16, O2 saturations of 98% with blood pressure 145/76. HEENT: Unremarkable. CARDIOVASCULAR SYSTEM: First and second sounds were heard. RESPIRATORY SYSTEM: Clear to auscultation. DIGESTIVE SYSTEM: Revealed a benign abdomen with positive bowel sounds. EXTREMITIES: Show some peripheral edema. LABORATORY INVESTIGATION: Showed a sodium of 131, bicarb of 17, BUN of 36 with a creatinine of 5.82. CBC showed hemoglobin 8.2, white count 2.6. IMPRESSION: 1. Acute kidney injury/acute tubular necrosis seems to be slightly worsening. 2. Metabolic acidosis related to problem #1. 3. Pancytopenia. PLAN: 1. We will continue renal supportive measures. 2. Hopefully the renal function will begin to plateau prior to improvement. However, if the renal function continues to deteriorate, hemodialysis will become indicated in this patient. 3. Renally dose all medications and avoid potentially nephrotoxic agents. 4. The patient's condition is still guarded. Job ID: [id number]
[2019-02-26] MEDS: tiZANidine HCl 4 MG TAB PO SCH (21:04)
[2019-02-27] MEDS: Levothyroxine Sodium 50 MCG TAB PO SCH (05:57)
[2019-02-27 06:49] LABS: #Lymphocytes 0.4 thou/uL (1.20-3.40); #Monocytes 0.4 thou/uL (0.11-0.59); %Basophils 0.5 % (0.0-1.0); %Eosinophils 0.3 % (0.0-10.0); %Lymphocytes 11.2 % (21.0-51.0); %Monocytes 11.4 % (0.0-10.0); %Neutrophils 76.5 % (42.0-75.0); Hemoglobin 8.6 g/dL (12.0-16.0); Mean Corpuscular HGB CONC 31.9 g/dL (32.0-36.0); Mean Corpuscular Hemoglobin 28.4 pg (27.0-31.0); Mean Corpuscular Volume 89.2 fL (78.0-98.0); Mean Platelet Volume 6.4 fL (7.4-10.4); Platelet Count 64 thou/uL (130-400); RBC Distribution Width 17.6 % (11.5-14.5); Red Blood Cell (RBC) Count 3.04 mill/uL (4.20-5.40); White Blood Cell (WBC) Count 3.9 thou/uL (4.8-10.8)
[2019-02-27 07:17] LABS: Albumin 2.5 g/dL (3.5-5.0); Anion Gap 13 mmol/L (10-20); BUN (Urea Nitrogen) 41 mg/dL (9.8-20.1); BUN/Creatinine Ratio 6.73; Calc. Creatinine Clearance 12 mL/min (70-130); Calcium 8.3 mg/dL (7.8-10.44); Carbon Dioxide 16 mmol/L (22-29); Chloride 108 mmol/L (98-107); Estimated GFR-MDRD 7; Glucose 94 mg/dL (70-105); Potassium 5.3 mmol/L (3.5-5.1); Sodium 132 mmol/L (136-145)
[2019-02-27 07:27] LABS: Phosphorus 9.9 mg/dL (2.3-4.7)
[2019-02-27] MEDS: DULoxetine 30 MG CAP PO SCH (08:45)
[2019-02-27] MEDS: Linezolid 600 MG in Premix Bag 1 BAG IVPB SCH ×2 (08:45→20:39)
[2019-02-27] MEDS: Cepastat Lozenges 1 LOZ PO SCH ×4 (08:45→20:35)
[2019-02-27] MEDS: Milk Of Magnesia 30 ML UDCUP PO SCH (08:46)
[2019-02-27] MEDS: Docusate 100 MG CAP PO SCH ×2 (08:46→20:39)
[2019-02-27] MEDS ORDERED: Heparin 10,000 UNITS/ 10 ML VIAL ONE (10:00)
--- NOTE | 2019-02-27 11:58 | CT ---
CT NECK NONCONTRAST: DATE: 02/27/2019. HISTORY: A 58-year-old female with neck pain and bacteremia. Followup retropharyngeal fluid collection. COMPARISON: 02/25/2019. FINDINGS: Again, evaluation is limited without IV contrast. The retropharyngeal fluid collection mentioned on the previous report, has become thinner. For example, at the level of the supraglottic larynx, the A P dimension has decreased from previous measurement of approximately 0.5 cm, to current measurement o f approximately 0.2 cm. Again noted is the anasarca, multiple pulmonary nodules, and the left supraclavicular lymphadenopathy . IMPRESSION: Interval decrease in volume of retropharyngeal fluid collection. This favors that this may be a retr opharyngeal effusion (or phlegmon) rather than a retropharyngeal abscess. However, continued short i nterval followup neck CTs are recommended, beginning in 1 week (unless the patient's symptoms worsen, in which case the followup CT should be obtained sooner). POS: [facility]
[2019-02-27] MEDS ORDERED: Lidocaine 1% (PF) 30 ML VIAL ONE (15:44)
--- NOTE | 2019-02-27 18:26 | PRG ---
DATE OF SERVICE: 02/27/2019 SUBJECTIVE: The patient is seen and examined, not doing too well. Noted with the following vital signs. OBJECTIVE: VITAL SIGNS: Afebrile, temperature 97.5, pulse , respiratory rate of 18, O2 saturation 94% with blood pressure 140/95. HEENT: Unremarkable. CARDIOVASCULAR SYSTEM: First and second heart sounds were heard. RESPIRATORY SYSTEM: Clear to auscultation. DIGESTIVE SYSTEM: Revealed a benign abdomen. EXTREMITIES: Showed some peripheral edema. SKIN: No new gross rash. LYMPHATICS: No peripheral lymphadenopathy. LABORATORY INVESTIGATION: Showed a hemoglobin of 8.6 with a white count of 8.9, platelet . Chemistry showed a creatinine of 6.09, BUN of 41, bicarb of 16, potassium 5.3, and sodium 132. IMPRESSION: 1. Worsening acute tubular necrosis with severe hyperphosphatemia. 2. Worsening metabolic acidosis. 3. Hyperkalemia. All related to problem #1. PLAN: 1. The patient is at the point of requiring renal replacement therapy. Therefore, we will secure temporary dialysis access and initiate dialysis. 2. Continue renal supportive measures. 3. Further decisions about dialysis will be dependent on the clinical course. Job ID: [id number]
[2019-02-27 18:28] LABS: HBSAB Concentration 3.48 mIU/mL; HBSAg Index 0.55 S/CO (0-0.99); Hep B Surf AB Non-Reactive (NonReactive); Hep B Surf Ag Non-Reactive S/CO (NonReactive)
[2019-02-27] MEDS: fentaNYL 50 mcg/hour Patch TD SCH (19:39)
[2019-02-27] MEDS: tiZANidine HCl 4 MG TAB PO SCH (20:39)
--- NOTE | 2019-02-28 01:23 | OP ---
DATE OF PROCEDURE: 02/27/2019 PREOPERATIVE DIAGNOSIS: Acute renal failure. POSTOPERATIVE DIAGNOSIS: Acute renal failure. PROCEDURE PERFORMED: Placement of a triple-lumen left femoral temporary dialysis catheter. INDICATIONS FOR PROCEDURE: A 58-year-old woman was admitted with acute renal failure. I was asked to place a temporary dialysis access to enable initiate hemodialysis. DESCRIPTION OF PROCEDURE: Informed consent obtained from the patient's . The patient was placed in supine position. Left groin was sterilely prepped and draped in usual fashion. The skin was anesthetized with 1% lidocaine medial to the palpated left femoral artery. The left femoral vein was cannulated with an 18-gauge introducer needle returning dark venous blood. A guidewire was passed through the needle and advanced into the left femoral vein without resistance. The needle was withdrawn. A stab incision was made adjacent to the guidewire. A dilator was passed over the guidewire dilating the subcutaneous tissues. Dilator was removed and a triple-lumen Trialysis catheter was advanced over the guidewire and placed in the left femoral vein without resistance and hub to the skin. The guidewire was removed. Dark venous blood was aspirated from all three ports, which were individually flushed with saline followed by heparin. Catheter was secured to the left groin using 3-0 nylon suture at 2 points. Sterile dressings were applied. The patient tolerated the procedure without any apparent complication and remained hemodynamically stable following completion of procedure. No hematoma noted. Job ID: [id number]
[2019-02-28 05:17] LABS: #Lymphocytes 0.6 thou/uL (1.20-3.40); #Monocytes 0.5 thou/uL (0.11-0.59); #Neutrophils 4.2 thou/uL (1.40-6.50); %Basophils 0.3 % (0.0-1.0); %Eosinophils 0.4 % (0.0-10.0); %Lymphocytes 11.2 % (21.0-51.0); %Monocytes 9.7 % (0.0-10.0); %Neutrophils 78.5 % (42.0-75.0); Hemoglobin 8.2 g/dL (12.0-16.0); Mean Corpuscular HGB CONC 32.2 g/dL (32.0-36.0); Mean Corpuscular Hemoglobin 28.6 pg (27.0-31.0); Mean Corpuscular Volume 88.9 fL (78.0-98.0); Mean Platelet Volume 6.8 fL (7.4-10.4); Platelet Count 74 thou/uL (130-400); RBC Distribution Width 17.4 % (11.5-14.5); Red Blood Cell (RBC) Count 2.87 mill/uL (4.20-5.40); White Blood Cell (WBC) Count 5.4 thou/uL (4.8-10.8)
[2019-02-28 05:32] LABS: Albumin 2.5 g/dL (3.5-5.0); Anion Gap 16 mmol/L (10-20); BUN (Urea Nitrogen) 36 mg/dL (9.8-20.1); BUN/Creatinine Ratio 7.02; Calc. Creatinine Clearance 14 mL/min (70-130); Calcium 8.2 mg/dL (7.8-10.44); Carbon Dioxide 19 mmol/L (22-29); Chloride 105 mmol/L (98-107); Estimated GFR-MDRD 9; Glucose 98 mg/dL (70-105); Phosphorus 8.6 mg/dL (2.3-4.7); Potassium 4.5 mmol/L (3.5-5.1); Sodium 135 mmol/L (136-145)
[2019-02-28] MEDS: Levothyroxine Sodium 50 MCG TAB PO SCH (06:07)
[2019-02-28] MEDS: DULoxetine 30 MG CAP PO SCH (08:55)
[2019-02-28] MEDS: Linezolid 600 MG in Premix Bag 1 BAG IVPB SCH ×2 (08:55→20:14)
[2019-02-28] MEDS: Docusate 100 MG CAP PO SCH ×2 (08:56→20:14)
[2019-02-28] MEDS: Milk Of Magnesia 30 ML UDCUP PO SCH (10:13)
[2019-02-28] MEDS: Cepastat Lozenges 1 LOZ PO SCH ×4 (10:13→20:09)
--- NOTE | 2019-02-28 10:33 | PRG ---
DATE OF SERVICE: 02/28/2019 OBJECTIVE: VITAL SIGNS: Noted with the following vital signs. Afebrile, temperature 98.3, pulse 85, respiratory rate of 18, O2 saturation of 95% with blood pressure 134/69. HEENT: Unremarkable. CARDIOVASCULAR: First and second heart sounds were heard. RESPIRATORY: Clear to auscultation. DIGESTIVE: Revealed a benign abdomen. EXTREMITIES: Showed minimal peripheral edema. LABORATORY INVESTIGATION: Showed a creatinine of 5.13, phosphorus of 8.6. IMPRESSION: Dense acute tubular necrosis, now in need of renal replacement therapy. PLAN: 1. We will continue with dialysis. We will dialyze this patient slightly longer today. 2. Further management will be dependent on the clinical course. Job ID: [id number]
[2019-02-28] MEDS ORDERED: Heparin 10,000 UNITS/ 10 ML VIAL ONE (15:00)
[2019-02-28] MEDS: tiZANidine HCl 4 MG TAB PO SCH (20:13)
[2019-03-01 04:43] LABS: Albumin 2.6 g/dL (3.5-5.0); Anion Gap 13 mmol/L (10-20); BUN (Urea Nitrogen) 26 mg/dL (9.8-20.1); BUN/Creatinine Ratio 7.39; Calc. Creatinine Clearance 21 mL/min (70-130); Calcium 8.2 mg/dL (7.8-10.44); Carbon Dioxide 24 mmol/L (22-29); Chloride 104 mmol/L (98-107); Estimated GFR-MDRD 13; Glucose 101 mg/dL (70-105); Phosphorus 6.3 mg/dL (2.3-4.7); Potassium 3.9 mmol/L (3.5-5.1); Sodium 137 mmol/L (136-145)
[2019-03-01] MEDS: Levothyroxine Sodium 50 MCG TAB PO SCH (05:15)
[2019-03-01] MEDS: Docusate 100 MG CAP PO SCH ×2 (09:01→21:50)
[2019-03-01] MEDS: DULoxetine 30 MG CAP PO SCH (09:01)
[2019-03-01] MEDS: Milk Of Magnesia 30 ML UDCUP PO SCH (09:02)
[2019-03-01] MEDS: Linezolid 600 MG in Premix Bag 1 BAG IVPB SCH ×2 (09:02→21:50)
[2019-03-01] MEDS: Cepastat Lozenges 1 LOZ PO SCH ×4 (09:03→21:50)
[2019-03-01] MEDS ORDERED: Heparin 1,000 UNITS/ML VIAL ONE (11:11)
--- NOTE | 2019-03-01 15:01 | PRG ---
DATE OF SERVICE: 03/01/2019 SUBJECTIVE: The patient is seen and examined, and on dialysis, seems to be feeling better, noted with the following vital signs. OBJECTIVE: VITAL SIGNS: Afebrile, temperature 98.4, pulse 92, respiratory rate of 18, O2 saturations 92% with blood pressure 139/77. HEENT: Unremarkable. CARDIOVASCULAR SYSTEM: First and second heart sounds were heard. RESPIRATORY SYSTEM: Clear to auscultation. DIGESTIVE SYSTEM: Revealed a benign abdomen with positive bowel sounds. EXTREMITIES: No peripheral edema. SKIN: No new gross rash. LYMPHATICS: No peripheral lymphadenopathy. LABORATORY INVESTIGATION: Showed a hemoglobin of 8.2. Chemistry showed a creatinine of 3.52 and phosphorus of 6.3. IMPRESSION: 1. Acute tubular necrosis, continues on dialysis. 2. Hyperphosphatemia. 3. Pancytopenia. PLAN: The patient undergoing the first session of dialysis today. We will likely hold the dialysis tomorrow and now place the patient on a Sunday, Sunday, and Sunday schedule, in between the patient's renal function to be re-evaluated vis-a-vis the possibility of renal recovery. Job ID: [id number]
[2019-03-01] MEDS ORDERED: Bisacodyl 10 MG SUPP PR PRN (15:55)
--- NOTE | 2019-03-01 16:04 | EKG ---
Test Reason : Blood Pressure : / mmHG Vent. Rate : 075 BPM Atrial Rate : 075 BPM P-R Int : 140 ms QRS Dur : 088 ms QT Int : 374 ms P-R-T Axes : 052 -04 051 degrees QTc Int : 417 ms Normal sinus rhythm Normal ECG Confirmed by MARIAELENA CARO ([id number]), news videotape editor ITA IBARRA ([id number]) on 03/01/2019 4:04:00 PM Referred By: Confirmed By:MARIAELENA CARO
[2019-03-01] MEDS: tiZANidine HCl 4 MG TAB PO SCH (21:50)
[2019-03-02 04:38] LABS: #Lymphocytes 0.6 thou/uL (1.20-3.40); #Monocytes 0.3 thou/uL (0.11-0.59); #Neutrophils 3.7 thou/uL (1.40-6.50); %Basophils 0.5 % (0.0-1.0); %Eosinophils 0.3 % (0.0-10.0); %Lymphocytes 13.2 % (21.0-51.0); %Monocytes 6.5 % (0.0-10.0); %Neutrophils 79.5 % (42.0-75.0); Hemoglobin 7.9 g/dL (12.0-16.0); Mean Corpuscular HGB CONC 31.2 g/dL (32.0-36.0); Mean Corpuscular Volume 89.7 fL (78.0-98.0); Mean Platelet Volume 5.2 fL (7.4-10.4); Platelet Count 62 thou/uL (130-400); RBC Distribution Width 17.7 % (11.5-14.5); Red Blood Cell (RBC) Count 2.82 mill/uL (4.20-5.40); White Blood Cell (WBC) Count 4.7 thou/uL (4.8-10.8)
[2019-03-02 04:44] LABS: Albumin 2.6 g/dL (3.5-5.0); Anion Gap 13 mmol/L (10-20); BUN (Urea Nitrogen) 19 mg/dL (9.8-20.1); BUN/Creatinine Ratio 7.82; Calc. Creatinine Clearance 30 mL/min (70-130); Calcium 8.2 mg/dL (7.8-10.44); Carbon Dioxide 25 mmol/L (22-29); Chloride 102 mmol/L (98-107); Estimated GFR-MDRD 21; Glucose 107 mg/dL (70-105); Phosphorus 4.4 mg/dL (2.3-4.7); Potassium 3.8 mmol/L (3.5-5.1); Sodium 136 mmol/L (136-145)
[2019-03-02] MEDS: Levothyroxine Sodium 50 MCG TAB PO SCH (06:08)
[2019-03-02] MEDS: DULoxetine 30 MG CAP PO SCH (09:12)
[2019-03-02] MEDS: Linezolid 600 MG in Premix Bag 1 BAG IVPB SCH ×2 (09:12→21:27)
[2019-03-02] MEDS: Milk Of Magnesia 30 ML UDCUP PO SCH (09:13)
[2019-03-02] MEDS: Docusate 100 MG CAP PO SCH ×2 (09:13→21:26)
[2019-03-02] MEDS: Cepastat Lozenges 1 LOZ PO SCH ×4 (09:13→21:27)
--- NOTE | 2019-03-02 15:52 | PRG ---
DATE OF SERVICE: 03/02/2019 SUBJECTIVE: The patient noted with the following vital signs. OBJECTIVE: VITAL SIGNS: Afebrile. Temperature 98.6, pulse 88, respiratory rate of 18, O2 saturations of 93%, blood pressure of 160/89. HEENT: Unremarkable. CARDIOVASCULAR SYSTEM: First and second heart sounds were heard. RESPIRATORY SYSTEM: Clear to auscultation. DIGESTIVE SYSTEM: Revealed a benign abdomen with positive bowel sounds. EXTREMITIES: No peripheral edema. SKIN: Showed some rashes . LABORATORY INVESTIGATION: Showed a hemoglobin of 7.9. Chemistry showed a creatinine of 2.43. IMPRESSION: 1. Acute kidney injury, on hemodialysis. 2. Anemia. 3. Hyperphosphatemia, which is improved, status post dialysis with phosphorus down to 4.4. PLAN: 1. Dialysis to be placed on hold today and resume on Sunday, Sunday, and Sunday schedule. 2. Consider agent. 3. Re-evaluate the renal function vis-a-vis, the possibility of renal recovery to the point of coming off dialysis. 4. Further management to be dependent on the clinical course. Job ID: [id number]
[2019-03-02] MEDS: tiZANidine HCl 4 MG TAB PO SCH (21:26)
[2019-03-02] MEDS ORDERED: cloNIDine 0.1 MG TAB PO SCH (22:00)
[2019-03-03] MEDS: Levothyroxine Sodium 50 MCG TAB PO SCH (06:08)
[2019-03-03 08:04] LABS: #Basophils 0.1 thou/uL (0.0-0.2); #Lymphocytes 0.8 thou/uL (1.20-3.40); #Monocytes 0.4 thou/uL (0.11-0.59); #Neutrophils 3.7 thou/uL (1.40-6.50); %Basophils 1.1 % (0.0-1.0); %Eosinophils 0.3 % (0.0-10.0); %Lymphocytes 15.9 % (21.0-51.0); %Monocytes 7.8 % (0.0-10.0); %Neutrophils 74.9 % (42.0-75.0); Hemoglobin 7.9 g/dL (12.0-16.0); Mean Corpuscular HGB CONC 33.5 g/dL (32.0-36.0); Mean Corpuscular Hemoglobin 29.9 pg (27.0-31.0); Mean Corpuscular Volume 89.3 fL (78.0-98.0); Mean Platelet Volume 5.7 fL (7.4-10.4); Platelet Count 58 thou/uL (130-400); RBC Distribution Width 17.5 % (11.5-14.5); Red Blood Cell (RBC) Count 2.65 mill/uL (4.20-5.40)
[2019-03-03 08:20] LABS: Anion Gap 15 mmol/L (10-20); BUN (Urea Nitrogen) 30 mg/dL (9.8-20.1); Calc. Creatinine Clearance 28 mL/min (70-130); Calcium 8.7 mg/dL (7.8-10.44); Carbon Dioxide 26 mmol/L (22-29); Chloride 104 mmol/L (98-107); Estimated GFR-MDRD 19; Glucose 101 mg/dL (70-105); Potassium 3.8 mmol/L (3.5-5.1); Sodium 141 mmol/L (136-145)
[2019-03-03] MEDS: Linezolid 600 MG in Premix Bag 1 BAG IVPB SCH (08:42)
[2019-03-03] MEDS: Docusate 100 MG CAP PO SCH ×2 (08:42→23:43)
[2019-03-03] MEDS: DULoxetine 30 MG CAP PO SCH (08:42)
[2019-03-03] MEDS: cloNIDine 0.1 MG TAB PO SCH (08:42)
[2019-03-03] MEDS: Milk Of Magnesia 30 ML UDCUP PO SCH (09:29)
[2019-03-03] MEDS: Cepastat Lozenges 1 LOZ PO SCH ×4 (09:29→23:43)
[2019-03-03 10:50] LABS: ALT (SGPT) 12 U/L (8-55); AST (SGOT) 36 U/L (5-34); Albumin 2.8 g/dL (3.5-5.0); Alkaline Phosphatase 124 U/L (40-150); Anion Gap 15 mmol/L (10-20); BUN (Urea Nitrogen) 29 mg/dL (9.8-20.1); Bilirubin, Total 2.3 mg/dL (0.2-1.2); Calc. Creatinine Clearance 29 mL/min (70-130); Calcium 8.4 mg/dL (7.8-10.44); Carbon Dioxide 24 mmol/L (22-29); Chloride 103 mmol/L (98-107); Estimated GFR-MDRD 20; Globulin 3.9 g/dL (2.4-3.5); Glucose 118 mg/dL (70-105); Potassium 3.8 mmol/L (3.5-5.1); Protein, Total 6.7 g/dL (6.0-8.3); Sodium 138 mmol/L (136-145)
[2019-03-03] MEDS ORDERED: Fentanyl 100 MCG/2 ML VIAL SLOW IVP SCH (14:30)
[2019-03-03] MEDS ORDERED: Lorazepam 0.5 MG TAB PO SCH (15:00)
[2019-03-03] MEDS: diphenhydrAMINE 50 MG/ML VIAL IVP PRN (15:39)
[2019-03-03] MEDS ORDERED: Lorazepam 2 MG/ML VIAL SLOW IVP SCH (17:15)
--- NOTE | 2019-03-03 18:09 | RAD ---
AP view chest. HISTORY: Shortness of breath AP view chest is obtained. Mild cardiomegaly seen. Pulmonary vascular congestion seen. There is a healing left seventh rib fracture which is old. No acute abnormality seen. Right subclavian Mediport catheter is been removed. IMPRESSION: Cardiomegaly and pulmonary vascular congestion.
[2019-03-03 19:11] LABS: #Lymphocytes 0.7 thou/uL (1.20-3.40); #Monocytes 0.3 thou/uL (0.11-0.59); #Neutrophils 8.2 thou/uL (1.40-6.50); %Basophils 0.2 % (0.0-1.0); %Eosinophils 0.1 % (0.0-10.0); %Lymphocytes 7.5 % (21.0-51.0); %Monocytes 2.9 % (0.0-10.0); %Neutrophils 89.4 % (42.0-75.0); Hemoglobin 8.5 g/dL (12.0-16.0); Mean Corpuscular HGB CONC 32.2 g/dL (32.0-36.0); Mean Corpuscular Hemoglobin 28.9 pg (27.0-31.0); Mean Platelet Volume 5.9 fL (7.4-10.4); Platelet Count 69 thou/uL (130-400); RBC Distribution Width 18.1 % (11.5-14.5); Red Blood Cell (RBC) Count 2.93 mill/uL (4.20-5.40); White Blood Cell (WBC) Count 9.1 thou/uL (4.8-10.8)
[2019-03-03] MEDS ORDERED: Buprenorphine 8mg/Naloxone 2mg per 1 FILM SL SCH (19:45)
--- NOTE | 2019-03-03 21:25 | PRG ---
DATE OF SERVICE: 03/03/2019 SUBJECTIVE: The patient was seen and examined. Noted with the following vital signs. OBJECTIVE: VITAL SIGNS: Afebrile, temperature 97.7; pulse 95; respiratory rate of 20; O2 saturations of 92% with blood pressure of 176/93. HEENT: Unremarkable. CARDIOVASCULAR SYSTEM: First and second heart sounds were heard. RESPIRATORY SYSTEM: Clear to auscultation. DIGESTIVE SYSTEM: Revealed a benign abdomen. EXTREMITIES: No peripheral edema. SKIN: No new gross rash. LYMPHATICS: No peripheral lymphadenopathy. IMPRESSION: 1. Acute tubular necrosis, on hemodialysis. 2. Hypovolemia. 3. Sepsis/pancytopenia, improving. PLAN: 1. We will hold off dialysis today; however, we will re-evaluate this patient on a daily basis vis-a-vis possibility of requiring renal replacement therapy. 2. If no significant urine output, may try diuresis on this patient. 3. Further management will be dependent on the clinical course. Job ID: [id number]
[2019-03-03] MEDS ORDERED: Furosemide 40 MG/4 ML VIAL SLOW IVP SCH (21:45)
[2019-03-03 21:51] LABS: Actual Bicarbonate (HCO3a) 22.1 mEq/L (22-28); Base Excess (BEa) -1.7 mEq/L (-2.0 to +3.0); CO2 Tension 33.4 mmHg (35.0-45.0); Carboxyhemoglobin (COHb) 1.7 gm% (0.0-3.0); Hemoglobin (Hb) 8.6 g/dL (12.0-16.0); O2 Tension (PaO2) 105.6 mmHg (80.0-100.0); Potassium - ABG Lab 4.13 mmol/L (3.70-5.30); pH, Arterial 7.44 (7.35-7.45)
[2019-03-03 21:53] LABS: Puncture Site RBR
[2019-03-03] MEDS ORDERED: Lorazepam 2 MG/ML VIAL ONE (22:03)
[2019-03-03] MEDS ORDERED: Furosemide 40 MG/4 ML VIAL ONE (22:04)
[2019-03-03] MEDS ORDERED: cloNIDine 0.1 MG TAB ONE (22:04)
[2019-03-03] MEDS: Lorazepam 2 MG/ML VIAL SLOW IVP PRN (22:18)
[2019-03-03] MEDS ORDERED: Ziprasidone 20 MG VIAL IM SCH (22:45)
[2019-03-03] MEDS ORDERED: Sterile Water 10 ML VIAL FS SCH (22:45)
[2019-03-03] MEDS ORDERED: Ziprasidone 20 MG VIAL ONE (22:47)
[2019-03-03] MEDS: tiZANidine HCl 4 MG TAB PO SCH (22:54)
[2019-03-04] MEDS: Linezolid 600 MG in Premix Bag 1 BAG IVPB SCH ×2 (00:06→14:10)
[2019-03-04] MEDS: cloNIDine 0.1 MG TAB PO SCH ×5 (00:07→20:02)
--- NOTE | 2019-03-04 00:41 | CT ---
CTA chest. HISTORY: Low oxygen saturation Contrast-enhanced CTA of the chest performed. 2-D and 3-D reconstruction images performed. CTA chest demonstrates numerous pulmonary metastatic lesions. Some splenomegaly seen. The aorta is unremarkable. No evidence of filling defects seen to suggest pulmonary emboli. IMPRESSION: No evidence of pulmonary emboli.
[2019-03-04] MEDS: Levothyroxine Sodium 50 MCG TAB PO SCH (05:51)
[2019-03-04] MEDS ORDERED: Buprenorphine 8mg/Naloxone 2mg per 1 FILM PO SCH (09:00)
--- NOTE | 2019-03-04 09:46 | CT ---
CT HEAD WITHOUT CONTRAST: Date: 03/04/19 Multiple axial tomograms obtained through the head without IV enhancement. INDICATION: Assess for metastasis to brain. History of lung mass. COMPARISON: 09/24/14. FINDINGS: Exam is limited for evaluation of metastatic disease due to lack of IV contrast. There is a nonspecific lucency in the brachium pontis on the left, left cerebellar peduncle, which is nonspecific. There is otherwise no evidence of mass or edema. No evidence of hemorrhage. Ventricles have normal size and position. IMPRESSION: No evidence of acute process. Exam is limited for evaluation of metastatic disease due to lack of IV contrast. MRI suggested if metastatic disease is suspected. If kidney function will not allow Gadolin ium, MRI without contrast would be more sensitive than noncontrast CT to assess for lesions. POS: OFF
[2019-03-04 09:53] LABS: Anion Gap 16 mmol/L (10-20); BUN (Urea Nitrogen) 41 mg/dL (9.8-20.1); Calc. Creatinine Clearance 28 mL/min (70-130); Calcium 8.4 mg/dL (7.8-10.44); Carbon Dioxide 25 mmol/L (22-29); Chloride 103 mmol/L (98-107); Estimated GFR-MDRD 19; Glucose 123 mg/dL (70-105); Potassium 4.3 mmol/L (3.5-5.1); Sodium 140 mmol/L (136-145)
[2019-03-04 09:56] LABS: #Lymphocytes 0.7 thou/uL (1.20-3.40); #Monocytes 0.3 thou/uL (0.11-0.59); #Neutrophils 4.1 thou/uL (1.40-6.50); %Basophils 0.2 % (0.0-1.0); %Eosinophils 0.2 % (0.0-10.0); %Lymphocytes 13.8 % (21.0-51.0); %Monocytes 5.4 % (0.0-10.0); %Neutrophils 80.5 % (42.0-75.0); Anisocytosis SLIGHT = 6-15 cells (100X) (0-5/hpf); Elliptocytes SLIGHT = 2-5 cells (100X) (0-1/hpf); Hemoglobin 8.4 g/dL (12.0-16.0); Hypochromia SLIGHT = 6-15 cells (100X) (0-5/hpf); MDiff Complete? YES; Mean Corpuscular HGB CONC 33.3 g/dL (32.0-36.0); Mean Corpuscular Hemoglobin 29.7 pg (27.0-31.0); Mean Platelet Volume 18.8 fL (7.4-10.4); Platelet Count 6 thou/uL (130-400); Platelet Morphology Comment Appears Decreased; Poikilocytosis SLIGHT = 6-15 cells (100X) (0-5/hpf); RBC Distribution Width 18.2 % (11.5-14.5); Red Blood Cell (RBC) Count 2.84 mill/uL (4.20-5.40); Tear Drops SLIGHT = 2-5 cells (100X) (0-1/hpf); White Blood Cell (WBC) Count 5.3 thou/uL (4.8-10.8)
[2019-03-04] MEDS: Milk Of Magnesia 30 ML UDCUP PO SCH ×2 (12:59→13:07)
[2019-03-04] MEDS: Docusate 100 MG CAP PO SCH ×3 (13:00→20:02)
[2019-03-04] MEDS: Cepastat Lozenges 1 LOZ PO SCH ×3 (13:00→20:02)
[2019-03-04] MEDS: DULoxetine 30 MG CAP PO SCH (13:01)
[2019-03-04] MEDS ORDERED: Vancomycin HCl 1 GM in Premix Bag 1 BAG IVPB SCH (15:00)
--- NOTE | 2019-03-04 17:23 | MRI ---
Noncontrast enhanced MRI images brain HISTORY: 58-year-old with history of lung mass possible brain metastases. Multiplanar multisequence noncontrast enhanced MRI images brain obtained. Gadolinium could not be giv en due to the patient's limited renal function. Images demonstrate some diffuse cortical atrophy. A small left parietal subdural chronic hematomas present. This is not visible on CT. There is an area of signal abnormality in the subcortical white matter of the left frontal lobe axial image #27 and 28. This may represent a small subcortical white matter metastatic lesion versus old area of infarction with secondary gliotic changes. No other significant intracranial lesions seen. IMPRESSION: 1: Small left parietal subdural hematoma. 2: Left frontal area of signal abnormality impression diagnoses includes area of incomplete infarctio n versus metastatic lesion.
[2019-03-04] MEDS: tiZANidine HCl 4 MG TAB PO SCH (20:03)
--- NOTE | 2019-03-04 20:37 | PRG ---
DATE OF SERVICE: 03/04/2019 SUBJECTIVE: The patient was seen and examined. Noted with the following vital signs. OBJECTIVE: VITAL SIGNS: Afebrile, temperature 98.7, pulse 95, respiratory rate of 20, and O2 saturation 100% with blood pressure 159/89. GENERAL: The patient had some respiratory issues related to medications and got transferred to [facility], could not interact much with this patient. HEENT: Unremarkable. CARDIOVASCULAR SYSTEM: First and second heart sounds were heard. RESPIRATORY SYSTEM: Clear to auscultation anteriorly. DIGESTIVE SYSTEM: Revealed a benign abdomen. EXTREMITIES: No peripheral edema. SKIN: No new gross rash. LYMPH: No peripheral lymphadenopathy. IMPRESSION: 1. Acute kidney injury on dialysis. The dialysis is on hold for now. Monitor the renal function on daily basis. 2. Mental status change likely related to medication. 3. Pancytopenia, improving. PLAN: 1. We will monitor this patient's renal function as the patient with the recent contrast exposure for potential contrast nephropathy. 2. No emergent indication at this point for renal replacement therapy. 3. Further management to be dependent on the clinical course. Job ID: [id number]
[2019-03-04] MEDS: Sodium Chloride 0.9% 1,000 ML IV SCH (21:46)
[2019-03-05] MEDS: cloNIDine 0.1 MG TAB PO PRN ×5 (00:19→16:31)
[2019-03-05] MEDS: Levothyroxine Sodium 50 MCG TAB PO SCH (05:10)
[2019-03-05] MEDS: Sodium Chloride 0.9% 1,000 ML IV SCH (05:12)
[2019-03-05 06:30] LABS: Anion Gap 16 mmol/L (10-20); BUN (Urea Nitrogen) 47 mg/dL (9.8-20.1); Calc. Creatinine Clearance 30 mL/min (70-130); Calcium 8.7 mg/dL (7.8-10.44); Carbon Dioxide 26 mmol/L (22-29); Chloride 105 mmol/L (98-107); Estimated GFR-MDRD 20; Glucose 108 mg/dL (70-105); Potassium 4.1 mmol/L (3.5-5.1); Sodium 143 mmol/L (136-145)
[2019-03-05 07:31] LABS: Hemoglobin 7.9 g/dL (12.0-16.0); Mean Corpuscular HGB CONC 31.1 g/dL (32.0-36.0); Mean Corpuscular Hemoglobin 28.2 pg (27.0-31.0); Mean Corpuscular Volume 90.6 fL (78.0-98.0); Mean Platelet Volume 7.2 fL (7.4-10.4); Platelet Count 51 thou/uL (130-400); RBC Distribution Width 17.9 % (11.5-14.5); White Blood Cell (WBC) Count 6.2 thou/uL (4.8-10.8)
[2019-03-05 07:32] LABS: #Eosinphils 0.1 thou/uL (0.0-0.7); #Lymphocytes 0.9 thou/uL (1.20-3.40); #Monocytes 0.4 thou/uL (0.11-0.59); #Neutrophils 4.9 thou/uL (1.40-6.50); %Basophils 0.4 % (0.0-1.0); %Lymphocytes 13.9 % (21.0-51.0); %Monocytes 5.8 % (0.0-10.0); %Neutrophils 78.9 % (42.0-75.0)
[2019-03-05 08:30] LABS: Bite Cells SLIGHT = 2-5 cells (100X) (0-1/hpf); MDiff Complete? YES; Platelet Morphology Comment Appears Decreased; Polychromasia SLIGHT = 2-3 cells (100X) (0-2/hpf)
[2019-03-05] MEDS: cloNIDine 0.1 MG TAB PO SCH ×2 (08:39→20:45)
[2019-03-05] MEDS: Cepastat Lozenges 1 LOZ PO SCH ×4 (08:40→20:46)
[2019-03-05] MEDS: Docusate 100 MG CAP PO SCH ×2 (08:40→20:44)
[2019-03-05] MEDS: DULoxetine 30 MG CAP PO SCH (08:40)
[2019-03-05] MEDS: Milk Of Magnesia 30 ML UDCUP PO SCH (08:40)
[2019-03-05] MEDS: Buprenorphine 8mg/Naloxone 2mg per 1 FILM SL SCH (09:19)
[2019-03-05 14:43] LABS: Vancomycin, Random 9.8 ug/mL (See Comment)
[2019-03-05] MEDS: Vancomycin HCl 750 MG in Sodium Chloride 0.9% 250 ML 250 ML IVPB SCH (15:40)
[2019-03-05] MEDS: Acetaminophen/Codeine 30-300mg Tablet PO PRN ×2 (16:31→22:10)
[2019-03-05] MEDS: diphenhydrAMINE 25 MG CAP PO PRN (20:44)
[2019-03-05] MEDS: tiZANidine HCl 4 MG TAB PO SCH (20:45)
--- NOTE | 2019-03-05 20:50 | PRG ---
DATE OF SERVICE: 03/05/2019 SUBJECTIVE: The patient was seen and examined. Alert and oriented x2. Noted with the following vital signs. OBJECTIVE: VITAL SIGNS: Afebrile, temperature 98.5, pulse 81, respiratory rate of 20, O2 saturation 97% with a blood pressure 178/87. HEENT: Unremarkable. Moist oral mucosa. NECK: Supple. No conjunctival injection or icterus. CARDIOVASCULAR SYSTEM: First and second heart sounds were heard. RESPIRATORY SYSTEM: Clear to auscultation anteriorly. DIGESTIVE SYSTEM: Revealed a benign abdomen with positive bowel sounds. EXTREMITIES: No peripheral edema. SKIN: No new gross rash. LYMPHATICS: No peripheral lymphadenopathy. LABORATORY INVESTIGATION: Significant for hemoglobin of 7.9, platelet of 81,000. Chemistry showed a BUN of 47 with a creatinine of 2.46. BNP of 6517. IMPRESSION: 1. Acute tubular necrosis, which seems to have resolved to the point of creatinine fluctuating around 2.4. 2. Possible pulmonary congestion. 3. Pancytopenia. PLAN: 1. Dialysis is put on hold. We will monitor the patient closely. 2. The patient may benefit from diuretics, especially the patient begins to show evidence of respiratory distress. 3. Further management to be dependent on the clinical course. Job ID: [id number]
[2019-03-06] MEDS: Levothyroxine Sodium 50 MCG TAB PO SCH (06:21)
[2019-03-06] MEDS: Acetaminophen/Codeine 30-300mg Tablet PO PRN (06:23)
[2019-03-06 06:46] LABS: #Basophils 0.1 thou/uL (0.0-0.2); #Lymphocytes 0.9 thou/uL (1.20-3.40); #Monocytes 0.4 thou/uL (0.11-0.59); #Neutrophils 3.8 thou/uL (1.40-6.50); %Basophils 1.3 % (0.0-1.0); %Eosinophils 0.5 % (0.0-10.0); %Lymphocytes 18.1 % (21.0-51.0); %Monocytes 6.8 % (0.0-10.0); %Neutrophils 73.3 % (42.0-75.0); Hemoglobin 7.4 g/dL (12.0-16.0); Mean Corpuscular HGB CONC 31.8 g/dL (32.0-36.0); Mean Corpuscular Hemoglobin 28.7 pg (27.0-31.0); Mean Corpuscular Volume 90.1 fL (78.0-98.0); Mean Platelet Volume 7.1 fL (7.4-10.4); Platelet Count 33 thou/uL (130-400); Red Blood Cell (RBC) Count 2.59 mill/uL (4.20-5.40); White Blood Cell (WBC) Count 5.1 thou/uL (4.8-10.8)
[2019-03-06 06:48] LABS: Anion Gap 14 mmol/L (10-20); BUN (Urea Nitrogen) 49 mg/dL (9.8-20.1); Calc. Creatinine Clearance 36 mL/min (70-130); Calcium 8.4 mg/dL (7.8-10.44); Carbon Dioxide 27 mmol/L (22-29); Chloride 104 mmol/L (98-107); Estimated GFR-MDRD 25; Glucose 96 mg/dL (70-105); Potassium 3.8 mmol/L (3.5-5.1); Sodium 141 mmol/L (136-145)
[2019-03-06 08:35] LABS: Bite Cells SLIGHT = 2-5 cells (100X) (0-1/hpf); Hypochromia SLIGHT = 6-15 cells (100X) (0-5/hpf); MDiff Complete? YES; Ovalocytes SLIGHT = 2-5 cells (100X) (0-1/hpf); Platelet Morphology Comment Appears Decreased; Polychromasia SLIGHT = 2-3 cells (100X) (0-2/hpf); Schistocytes SLIGHT = 2-5 cells (100X) (0-1/hpf); Tear Drops SLIGHT = 2-5 cells (100X) (0-1/hpf)
[2019-03-06] MEDS ORDERED: Fleet Enema 133 ML BOT PR SCH (09:45)
[2019-03-06] MEDS: Cepastat Lozenges 1 LOZ PO SCH ×3 (09:48→17:15)
[2019-03-06] MEDS: Milk Of Magnesia 30 ML UDCUP PO SCH (09:48)
[2019-03-06] MEDS: Docusate 100 MG CAP PO SCH (09:52)
[2019-03-06] MEDS: DULoxetine 30 MG CAP PO SCH (09:52)
[2019-03-06] MEDS ORDERED: cloNIDine 0.2 MG TAB PO SCH (10:00)
[2019-03-06] MEDS: cloNIDine 0.1 MG TAB PO SCH (10:51)
[2019-03-06] MEDS: Buprenorphine 8mg/Naloxone 2mg per 1 FILM SL SCH (12:34)
[2019-03-06] MEDS: Vancomycin HCl 750 MG in Sodium Chloride 0.9% 250 ML 250 ML IVPB SCH (17:39)
--- NOTE | 2019-03-06 17:41 | MRI ---
Noncontrast enhanced MRI images brain [facility] history: Evaluate subdural hematoma. Comparison made to previous exam of 03/04/2019. Multiplanar multisequence noncontrast enhanced MRI images brain obtained. Motion artifact again seen. The left parietal subdural collection is unchanged. No other significant changes or abnormalities noted. Again left deep white matter area of signal abnormality seen. This is also unchanged. IMPRESSION: stable MRI appearance of the brain not significantly changed since the previous exam. If there is concern for follow-up imaging consider using CT of the brain.
[2019-03-06] MEDS: tiZANidine HCl 4 MG TAB PO PRN (18:57)
--- NOTE | 2019-03-06 19:36 | PRG ---
DATE OF SERVICE: 03/06/2019 SUBJECTIVE: The patient noted with the following vital signs. PHYSICAL EXAMINATION: VITAL SIGNS: Afebrile, temperature 98.5, pulse 71, respiratory rate of 18, O2 saturations 94%, blood pressure 160/101. HEENT: Unremarkable. CARDIOVASCULAR SYSTEM: First and second heart sounds were heard. RESPIRATORY SYSTEM: Clear to auscultation. DIGESTIVE SYSTEM: Benign abdomen. EXTREMITIES: Some peripheral edema. LABORATORY INVESTIGATION: Significant for a creatinine that has gone down to 0.03. IMPRESSION: Acute tubular necrosis which seems to be improving. PLAN: If the patient's renal function continues to improve, we will likely discontinue the femoral dialysis catheter. Job ID: [id number]
[2019-03-06] MEDS: diphenhydrAMINE 25 MG CAP PO PRN (21:54)
[2019-03-06] MEDS: cloNIDine 0.2 MG TAB PO SCH (21:55)
[2019-03-06] MEDS: tiZANidine HCl 4 MG TAB PO SCH (21:55)
[2019-03-06] MEDS: Megestrol Acetate 800 MG/20 ML UDCUP PO SCH (21:55)
[2019-03-07] MEDS: Docusate 100 MG CAP PO SCH ×3 (00:30→21:48)
[2019-03-07] MEDS: Cepastat Lozenges 1 LOZ PO SCH ×5 (00:30→21:56)
[2019-03-07 06:43] LABS: #Eosinphils 0.1 thou/uL (0.0-0.7); #Monocytes 0.3 thou/uL (0.11-0.59); %Basophils 0.4 % (0.0-1.0); %Eosinophils 1.7 % (0.0-10.0); %Lymphocytes 18.4 % (21.0-51.0); %Monocytes 6.1 % (0.0-10.0); %Neutrophils 73.4 % (42.0-75.0); Hemoglobin 7.4 g/dL (12.0-16.0); Mean Corpuscular HGB CONC 31.9 g/dL (32.0-36.0); Mean Corpuscular Hemoglobin 28.6 pg (27.0-31.0); Mean Corpuscular Volume 89.9 fL (78.0-98.0); Mean Platelet Volume 7.8 fL (7.4-10.4); Platelet Count 35 thou/uL (130-400); RBC Distribution Width 17.5 % (11.5-14.5); White Blood Cell (WBC) Count 5.4 thou/uL (4.8-10.8)
[2019-03-07 06:52] LABS: Anion Gap 15 mmol/L (10-20); BUN (Urea Nitrogen) 45 mg/dL (9.8-20.1); Calc. Creatinine Clearance 43 mL/min (70-130); Calcium 8.3 mg/dL (7.8-10.44); Carbon Dioxide 25 mmol/L (22-29); Chloride 102 mmol/L (98-107); Estimated GFR-MDRD 31; Glucose 103 mg/dL (70-105); Sodium 138 mmol/L (136-145)
[2019-03-07] MEDS: Levothyroxine Sodium 50 MCG TAB PO SCH (08:05)
[2019-03-07] MEDS: Megestrol Acetate 800 MG/20 ML UDCUP PO SCH ×2 (10:12→21:53)
[2019-03-07] MEDS: cloNIDine 0.2 MG TAB PO SCH ×2 (10:13→21:47)
[2019-03-07] MEDS: Milk Of Magnesia 30 ML UDCUP PO SCH (10:14)
[2019-03-07] MEDS: DULoxetine 30 MG CAP PO SCH (10:15)
[2019-03-07] MEDS ORDERED: GoLYTELY 4,000 ml Bottle PO SCH (11:00)
--- NOTE | 2019-03-07 11:53 | MRI ---
MR CERVICAL SPINE WITHOUT CONTRAST INDICATION: Follow-up retropharyngeal phlegmon TECHNIQUE: Multiplanar multisequence MR images were obtained of the cervical spine without contrast. COMPARISON: Prior MR of the cervical spine with and without contrast dated February 22, [address] of t he soft tissues of the neck dated February 25, 2019. FINDINGS: Motion artifact heavily degrades image detail. Posterior fossa: Within normal limits. Bone marrow signal intensity: Normal Spinal alignment: Within normal limits Craniocervical junction: Normal appearing. Prevertebral and perivertebral soft tissues: The prevertebral edema seen on the comparison MR examina tion of the cervical spine has mildly improved. There are some mild residual edema seen anterior to the spine from the craniocervical junction through the C4 vertebral level. Vertebral levels: Motion artifact heavily degrades evaluation of the neural foramina and extent of central canal narrow ing. On the sagittal images there are mild broad-based disc bulges that appears similar to the comparison MR dated February 22, 2019. IMPRESSION: 1. Heavily Limited exam due to motion artifact. 2. The prevertebral soft tissue edema seen on the comparison MR examination dated February 22, 2019 appear s less prominent. Mild residual edema remains.
[2019-03-07] MEDS: Ondansetron PF 4 MG/2 ML Vial IVP PRN (12:07)
[2019-03-07] MEDS: tiZANidine HCl 4 MG TAB PO PRN (12:07)
[2019-03-07] MEDS: Buprenorphine 8mg/Naloxone 2mg per 1 FILM SL SCH (12:15)
[2019-03-07] MEDS: cloNIDine 0.1 MG TAB PO PRN ×2 (13:04→18:12)
[2019-03-07] MEDS: Vancomycin HCl 1 GM in Premix Bag 1 BAG IVPB SCH (15:41)
[2019-03-07] MEDS: Calcium Carbonate 500 MG ChewTAB PO PRN (18:13)
--- NOTE | 2019-03-07 20:10 | PRG ---
DATE OF SERVICE: 03/07/2019 SUBJECTIVE: Noted with the following vital signs. OBJECTIVE: VITAL SIGNS: Afebrile, temperature 96.9, pulse 78, blood pressure 178/103, respiratory rate of 18, and O2 saturations 96%. HEENT: Unremarkable. CARDIOVASCULAR SYSTEM: First and second heart sounds were heard. RESPIRATORY SYSTEM: Clear to auscultation. DIGESTIVE SYSTEM: Revealed a benign abdomen. EXTREMITIES: Show some peripheral edema. SKIN: No new gross rash. LYMPHATICS: No peripheral lymphadenopathy. LABORATORY INVESTIGATION: Showed a hemoglobin of 7.4, platelet of 35,000. Chemistry showed a creatinine down to 1.69 and BUN of 45. IMPRESSION: 1. Acute kidney injury, which seems to be improving. 2. Pancytopenia. PLAN: 1. There is no indication for hemodialysis anymore. Therefore, we will recommend removal of the femoral dialysis catheter. 2. Renally dose all medications and avoid potentially nephrotoxic agents. Job ID: [id number]
[2019-03-07] MEDS: diphenhydrAMINE 25 MG CAP PO PRN (21:48)
[2019-03-07] MEDS: tiZANidine HCl 4 MG TAB PO SCH (21:48)
[2019-03-07] MEDS: Pantoprazole 40 MG VIAL IVP SCH (21:55)
[2019-03-08 05:58] LABS: #Lymphocytes 0.9 thou/uL (1.20-3.40); #Monocytes 0.9 thou/uL (0.11-0.59); %Basophils 0.6 % (0.0-1.0); %Eosinophils 0.5 % (0.0-10.0); %Lymphocytes 15.7 % (21.0-51.0); %Monocytes 14.8 % (0.0-10.0); %Neutrophils 68.3 % (42.0-75.0); Hemoglobin 8.1 g/dL (12.0-16.0); Mean Corpuscular HGB CONC 34.7 g/dL (32.0-36.0); Mean Corpuscular Hemoglobin 30.8 pg (27.0-31.0); Mean Corpuscular Volume 88.6 fL (78.0-98.0); Mean Platelet Volume 15.5 fL (7.4-10.4); Platelet Count 27 thou/uL (130-400); RBC Distribution Width 17.6 % (11.5-14.5); Red Blood Cell (RBC) Count 2.64 mill/uL (4.20-5.40); White Blood Cell (WBC) Count 5.8 thou/uL (4.8-10.8)
[2019-03-08] MEDS: Levothyroxine Sodium 50 MCG TAB PO SCH (06:04)
[2019-03-08 06:19] LABS: Anion Gap 15 mmol/L (10-20); BUN (Urea Nitrogen) 42 mg/dL (9.8-20.1); Calc. Creatinine Clearance 51 mL/min (70-130); Calcium 8.2 mg/dL (7.8-10.44); Carbon Dioxide 23 mmol/L (22-29); Chloride 102 mmol/L (98-107); Estimated GFR-MDRD 38; Glucose 106 mg/dL (70-105); Potassium 3.6 mmol/L (3.5-5.1); Sodium 136 mmol/L (136-145)
[2019-03-08] MEDS: DULoxetine 30 MG CAP PO SCH (08:20)
[2019-03-08] MEDS: cloNIDine 0.2 MG TAB PO SCH ×2 (08:21→21:01)
[2019-03-08] MEDS: Docusate 100 MG CAP PO SCH ×2 (08:21→21:01)
[2019-03-08] MEDS: Cepastat Lozenges 1 LOZ PO SCH ×4 (08:21→21:01)
[2019-03-08] MEDS: Milk Of Magnesia 30 ML UDCUP PO SCH (08:21)
[2019-03-08] MEDS: Megestrol Acetate 800 MG/20 ML UDCUP PO SCH ×2 (08:21→20:59)
[2019-03-08] MEDS: Buprenorphine 8mg/Naloxone 2mg per 1 FILM SL SCH (08:22)
[2019-03-08] MEDS: Pantoprazole 40 MG VIAL IVP SCH ×2 (08:23→21:01)
[2019-03-08] MEDS: tiZANidine HCl 4 MG TAB PO PRN (12:53)
[2019-03-08] MEDS: Vancomycin HCl 1 GM in Premix Bag 1 BAG IVPB SCH (15:42)
--- NOTE | 2019-03-08 18:11 | PRG ---
DATE OF SERVICE: 03/08/2019 SUBJECTIVE: Ms. Muhammad has been transferred back to the floor. She had been treated with linezolid because of worsening renal function, and then she developed some evidence of bone marrow compromise with pancytopenia, and linezolid has been discontinued. She is back on vancomycin. She appears a bit confused, having some visual hallucinations. The pain in the neck area has improved quite a bit. She denies any headaches. No visual symptoms. No chest pain. No abdominal pain. OBJECTIVE: VITAL SIGNS: Temperature max 98.2, blood pressure 150/80, pulse 65, respirations 18, O2 saturation 92% to 95%. SKIN: Skin exam is not particularly remarkable. GENERAL: She does not appear in distress, although she is a little bit confused. HEENT: Ocular movements conjugate. She has no lymphadenopathy. LUNGS: Symmetric air entry. HEART: S1 and S2. Regular rate. ABDOMEN: Soft, not distended. Able to move extremities. LABORATORY DATA: White cell count of 5.8, hemoglobin 8.1, platelets 27,000, 68% neutrophils, and on admission her platelets were 12,000, and she has been anemic before, and her hemoglobin waxed and waned according to the number of days that she has been here. Her chemistry has shown marked improvement in renal function. The creatinine peaked at 6.09 and now is down to 1.44. Microbiology with the previously noted MRSA and blood cultures. She had a repeat cervical spine MRI done yesterday, which as in previous imaging studies attempts, has shown significant motion artifact; however, the soft tissue edema seen in the previous exam appears less prominent. There is mild residual edema remaining. ASSESSMENT AND DISCUSSION: Metastatic colon cancer, liver, and lungs with methicillin-resistant Staphylococcus aureus bacteremia and retropharyngeal phlegmon. She also developed renal dysfunction, probably hemodynamically mediated with the possibility of drug-induced renal insufficiency. She has displayed marked improvement in renal function now. Vancomycin is back in the profile, and linezolid was discontinued due to concerns with bone marrow side effects. She will need to continue treatment at least until the mid-March. Job ID: [id number]
[2019-03-08] MEDS: tiZANidine HCl 4 MG TAB PO SCH (20:59)
[2019-03-09] MEDS: Levothyroxine Sodium 50 MCG TAB PO SCH (05:44)
[2019-03-09 06:06] LABS: #Basophils 0.1 thou/uL (0.0-0.2); #Eosinphils 0.2 thou/uL (0.0-0.7); #Neutrophils 4.8 thou/uL (1.40-6.50); %Basophils 0.7 % (0.0-1.0); %Eosinophils 3.2 % (0.0-10.0); %Lymphocytes 13.7 % (21.0-51.0); %Monocytes 13.8 % (0.0-10.0); %Neutrophils 68.6 % (42.0-75.0); Hemoglobin 8.1 g/dL (12.0-16.0); Mean Corpuscular HGB CONC 31.9 g/dL (32.0-36.0); Mean Corpuscular Hemoglobin 28.2 pg (27.0-31.0); Mean Corpuscular Volume 88.3 fL (78.0-98.0); Mean Platelet Volume 18.3 fL (7.4-10.4); Platelet Count 18 thou/uL (130-400); Red Blood Cell (RBC) Count 2.86 mill/uL (4.20-5.40)
[2019-03-09 06:11] LABS: Anion Gap 13 mmol/L (10-20); BUN (Urea Nitrogen) 30 mg/dL (9.8-20.1); Calc. Creatinine Clearance 60 mL/min (70-130); Carbon Dioxide 25 mmol/L (22-29); Chloride 100 mmol/L (98-107); Estimated GFR-MDRD 45; Glucose 107 mg/dL (70-105); Potassium 3.3 mmol/L (3.5-5.1); Sodium 135 mmol/L (136-145)
[2019-03-09] MEDS: Milk Of Magnesia 30 ML UDCUP PO SCH ×2 (09:15→13:00)
[2019-03-09] MEDS: Cepastat Lozenges 1 LOZ PO SCH ×4 (09:15→20:35)
[2019-03-09] MEDS: Docusate 100 MG CAP PO SCH ×2 (09:16→20:35)
[2019-03-09] MEDS: Pantoprazole 40 MG VIAL IVP SCH ×2 (09:16→21:00)
[2019-03-09] MEDS: cloNIDine 0.2 MG TAB PO SCH ×2 (09:16→20:35)
[2019-03-09] MEDS: Megestrol Acetate 800 MG/20 ML UDCUP PO SCH ×2 (09:16→20:35)
[2019-03-09] MEDS: DULoxetine 30 MG CAP PO SCH (09:17)
[2019-03-09] MEDS: Buprenorphine 8mg/Naloxone 2mg per 1 FILM SL SCH (09:21)
[2019-03-09] MEDS: Calcium Carbonate 500 MG ChewTAB PO PRN (11:32)
--- NOTE | 2019-03-09 13:45 | MRI ---
EXAM: MRI of the brain without and with contrast HISTORY: Colon cancer and subdural hematoma COMPARISON: 03/06/2019 TECHNIQUE: Multiplanar multisequence MR images were obtained of the brain without and with IV contras t. FINDINGS: This exam is limited secondary to motion artifact. No restricted diffusion. No abnormal enhancement. No hydronephrosis. There is a stable very thin left parietal subdural extra-axial collection. The expected flow voids are present. Corpus callosum, pituitary, and craniocervical junction are within normal limits. The calvarium and overlying soft tissues are unremarkable. The paranasal sinuses and mastoid air cells are well aerated. IMPRESSION: 1. No evidence of intracranial metastatic disease on this limited exam 2. Stable left parietal extra-axial fluid collection.
[2019-03-09 14:34] LABS: Vancomycin, Trough 17.3 ug/mL
[2019-03-09] MEDS: Ondansetron PF 4 MG/2 ML Vial IVP PRN (15:15)
[2019-03-09] MEDS: Vancomycin HCl 1 GM in Premix Bag 1 BAG IVPB SCH (16:47)
[2019-03-09] MEDS: tiZANidine HCl 4 MG TAB PO PRN (16:47)
[2019-03-09] MEDS: cloNIDine 0.1 MG TAB PO PRN (16:47)
[2019-03-09] MEDS: Lorazepam 2 MG/ML VIAL SLOW IVP PRN (16:58)
[2019-03-09] MEDS: tiZANidine HCl 4 MG TAB PO SCH (20:36)
[2019-03-10] MEDS: Pantoprazole 40 MG VIAL IVP SCH (08:18)
[2019-03-10] MEDS: Megestrol Acetate 800 MG/20 ML UDCUP PO SCH ×2 (08:18→21:28)
[2019-03-10] MEDS: Milk Of Magnesia 30 ML UDCUP PO SCH (08:18)
[2019-03-10] MEDS: Docusate 100 MG CAP PO SCH ×2 (08:18→21:30)
[2019-03-10] MEDS: Levothyroxine Sodium 50 MCG TAB PO SCH (08:19)
[2019-03-10] MEDS: cloNIDine 0.2 MG TAB PO SCH ×2 (08:19→21:29)
[2019-03-10] MEDS: DULoxetine 30 MG CAP PO SCH (08:19)
[2019-03-10] MEDS ORDERED: tiZANidine HCl 4 MG TAB PO PRN (09:56)
[2019-03-10] MEDS: Cepastat Lozenges 1 LOZ PO SCH ×3 (13:15→21:29)
--- NOTE | 2019-03-10 13:48 | PRG ---
DATE OF SERVICE: 03/10/2019 pulse 87, blood pressure HEENT: Unremarkable. CARDIOVASCULAR: First and second heart sounds were heard. RESPIRATORY SYSTEM: Clear to auscultation. DIGESTIVE SYSTEM: Revealed a benign abdomen. EXTREMITIES: No peripheral edema. SKIN: No new gross rash. LYMPHATICS: No peripheral lymphadenopathy IMPRESSION: 1. Acute kidney injury which seems to be improved. 2. Hypertension, suboptimally controlled. PLAN: There is no indication for renal replacement therapy, here for dialysis renally dose all medications Job ID: [id number]
[2019-03-10] MEDS: Vancomycin HCl 1 GM in Premix Bag 1 BAG IVPB SCH (14:52)
--- NOTE | 2019-03-10 19:17 | PRG ---
DATE OF SERVICE: 03/10/2019 SUBJECTIVE: The patient is seen and examined. Noted with the following vital signs. OBJECTIVE: VITAL SIGNS: Afebrile, temperature 98.3, pulse 83, respiratory rate of 18, O2 saturations are 98%, and blood pressure 140/92. HEENT: Unremarkable. CARDIOVASCULAR SYSTEM: First and second heart sounds were heard. RESPIRATORY SYSTEM: Clear to auscultation. DIGESTIVE SYSTEM: Revealed a benign abdomen. EXTREMITIES: No peripheral edema. SKIN: No new gross rash. LYMPHATICS: No peripheral lymphadenopathy. LABORATORY INVESTIGATION: Showed a creatinine of 1.22 as of yesterday. IMPRESSION: Acute kidney injury, continues to improve. PLAN: 1. Continue current renal supportive measures. 2. Further management to be dependent on the clinical course. Job ID: [id number]
[2019-03-10] MEDS: tiZANidine HCl 4 MG TAB PO SCH (21:27)
[2019-03-11] MEDS: diphenhydrAMINE 25 MG CAP PO PRN ×2 (01:25→23:56)
[2019-03-11] MEDS: Acetaminophen 325 MG TAB PO PRN ×2 (01:25→23:57)
[2019-03-11 04:16] LABS: Anion Gap 10 mmol/L (10-20); BUN (Urea Nitrogen) 14 mg/dL (9.8-20.1); Calc. Creatinine Clearance 65 mL/min (70-130); Calcium 8.2 mg/dL (7.8-10.44); Carbon Dioxide 34 mmol/L (22-29); Chloride 99 mmol/L (98-107); Estimated GFR-MDRD 50; Glucose 110 mg/dL (70-105); Potassium 3.9 mmol/L (3.5-5.1); Sodium 139 mmol/L (136-145)
[2019-03-11 04:54] LABS: Anisocytosis SLIGHT = 6-15 cells (100X) (0-5/hpf); Elliptocytes SLIGHT = 2-5 cells (100X) (0-1/hpf); Eosinophils 8 % (0-10); Hemoglobin 6.8 g/dL (12.0-16.0); Lymphocytes 24 % (21-51); MDiff Complete? YES; Mean Corpuscular HGB CONC 32.2 g/dL (32.0-36.0); Mean Corpuscular Hemoglobin 28.3 pg (27.0-31.0); Mean Platelet Volume 14.9 fL (7.4-10.4); Monocytes 13 % (0-10); Neutrophil 55 % (42-75); Nucleated RBC 1 % (0); Platelet Count 32 thou/uL (130-400); Platelet Morphology Comment Appears Decreased; RBC Distribution Width 16.8 % (11.5-14.5); Red Blood Cell (RBC) Count 2.41 mill/uL (4.20-5.40); White Blood Cell (WBC) Count 5.9 thou/uL (4.8-10.8)
[2019-03-11] MEDS: Levothyroxine Sodium 50 MCG TAB PO SCH (06:00)
[2019-03-11] MEDS: Megestrol Acetate 800 MG/20 ML UDCUP PO SCH ×2 (08:57→20:54)
[2019-03-11] MEDS: Docusate 100 MG CAP PO SCH ×3 (08:57→23:57)
[2019-03-11] MEDS: DULoxetine 30 MG CAP PO SCH (08:58)
[2019-03-11] MEDS: Milk Of Magnesia 30 ML UDCUP PO SCH (08:58)
[2019-03-11] MEDS: cloNIDine 0.2 MG TAB PO SCH ×3 (08:58→23:57)
[2019-03-11 14:29] LABS: Vancomycin, Trough 15.8 ug/mL
[2019-03-11] MEDS: Vancomycin HCl 1 GM in Premix Bag 1 BAG IVPB SCH (17:21)
[2019-03-11] MEDS: cloNIDine 0.1 MG TAB PO PRN (17:21)
--- NOTE | 2019-03-11 18:02 | PRG ---
DATE OF SERVICE: 03/11/2019 SUBJECTIVE: The patient is seen and examined, receiving blood, noted with the following vital signs. OBJECTIVE: VITAL SIGNS: Afebrile, temperature 97.9, respiratory rate of 18, pulse of 87, blood pressure 164/95. HEENT: Unremarkable. CARDIOVASCULAR SYSTEM: First and second heart sounds were heard. RESPIRATORY SYSTEM: Clear to auscultation. DIGESTIVE SYSTEM: Revealed a benign abdomen with positive bowel sounds. EXTREMITIES: No peripheral edema. SKIN: No new gross rash. LYMPHATICS: No peripheral lymphadenopathy. LABORATORY INVESTIGATION: Showed a hemoglobin of 6.8, with a platelet of 32,000. Chemistry showed a creatinine down to 1.12, BUN of 14. IMPRESSION: 1. Acute tubular necrosis that required dialysis transiently. 2. Femoral dialysis catheter still in place. PLAN: 1. Due to the patient's thrombocytopenic state, the nurses on the floor have been uncomfortable to remove the femoral dialysis catheter, which technically has been requested to be off 24 hours ago. In any case, we will re-evaluate this patient tomorrow and possibly remove the femoral dialysis catheter by myself. 2. Further management to be dependent on the clinical course. Job ID: [id number]
[2019-03-11] MEDS: tiZANidine HCl 4 MG TAB PO SCH ×2 (20:41→23:56)
[2019-03-12] MEDS: Levothyroxine Sodium 50 MCG TAB PO SCH (05:00)
[2019-03-12 06:14] LABS: Anion Gap 14 mmol/L (10-20); BUN (Urea Nitrogen) 11 mg/dL (9.8-20.1); Calc. Creatinine Clearance 63 mL/min (70-130); Calcium 8.1 mg/dL (7.8-10.44); Carbon Dioxide 28 mmol/L (22-29); Chloride 97 mmol/L (98-107); Estimated GFR-MDRD 48; Glucose 103 mg/dL (70-105); Potassium 3.6 mmol/L (3.5-5.1); Sodium 135 mmol/L (136-145)
[2019-03-12 06:47] LABS: Hemoglobin 8.5 g/dL (12.0-16.0); Mean Corpuscular HGB CONC 32.9 g/dL (32.0-36.0); Mean Corpuscular Hemoglobin 28.3 pg (27.0-31.0); Mean Corpuscular Volume 86.2 fL (78.0-98.0); Platelet Count 48 thou/uL (130-400); RBC Distribution Width 16.6 % (11.5-14.5)
[2019-03-12 08:14] VITALS: TEMP 98.2
[2019-03-12 08:21] LABS: MDiff Complete? YES
[2019-03-12 08:22] LABS: Band 3 % (5-11); Eosinophils 6 % (0-10); Lymphocytes 13 % (21-51); Monocytes 12 % (0-10); Neutrophil 65 % (42-75); Ovalocytes SLIGHT = 2-5 cells (100X) (0-1/hpf); Polychromasia SLIGHT = 2-3 cells (100X) (0-2/hpf)
[2019-03-12] MEDS: Megestrol Acetate 800 MG/20 ML UDCUP PO SCH ×2 (08:43→08:56)
[2019-03-12] MEDS: cloNIDine 0.2 MG TAB PO SCH (08:44)
[2019-03-12] MEDS: DULoxetine 30 MG CAP PO SCH (08:44)
[2019-03-12] MEDS: Docusate 100 MG CAP PO SCH ×2 (08:44→08:56)
[2019-03-12] MEDS: Milk Of Magnesia 30 ML UDCUP PO SCH (08:54)
--- NOTE | 2019-03-12 13:58 | PQF ---
DATE: 03-12-19 ATTN: DR. GERALD MOSQUERA Please exercise your independent, professional judgment in responding to the clarification form. Clinical indicators are provided on the bottom of this form for your review Please check appropriate box(s): [ x ] Encephalopathy: Type: [ x ] Acute [ ] Subacute [ ] Chronic Etiology: [ ] Hypertensive [ ] Metabolic [ ] Toxic [ ] Septic [ x ] Other (please specify) [ ] Transient Alteration of Awareness [ x ] Other diagnosis ___cerebral infarction [ ] Unable to determine In addition, please specify: Present on Admission (POA): [ ] Yes [ x ] No [ ] Unable to determine For continuity of documentation, please document condition throughout progress notes and discharge summary. Thank You. CLINICAL INDICATORS - SIGNS / SYMPTOMS / LABS: PN 03-03-19 @0740: LETHARGIC, SLOW MENTATION PN 03-03-19 @ 2100: CONCERN FOR PE/CHF/FENTANYL WITHDRAWAL, LASIX 40MG IV PN 03-04-19: ALTERED MENTAL STATUS-PROBABLE WITHDRAWAL PN 03-09-19: CONFUSED, IRRATIONAL C/O GERMAN PN 03-10-19: CONFUSED, ALERT, NO C/O PAIN PN 03-11-19: NEURO- CONFUSION? ETIOLOGY EDEMA FROM CVA RISK FACTORS: PN 03-03-19 @ 2100: CONCERN FOR PE/CHF/FENTANYL WITHDRAWAL, LASIX 40MG IV PN 03-04-19: ALTERED MENTAL STATUS-PROBABLE WITHDRAWAL H&P: NEUTROPENIC FEVER, METASTATIC COLON CANCER, NECK AND BACK PAIN, ETIOLOGY IS YET TO BE DETERMINED, POSSIBLY DUE TO METASTATIC DISEASE, HX OF HEPATITIS C. TREATMENTS: 03-04-19: CT BRAIN CT, BRAIN MRI (This form is maintained as a part of the permanent medical record) 2014 [employer]. All Rights Reserved CORINA [email or web address] Office: [phone] [facility]
--- NOTE | 2019-03-12 14:36 | PRG ---
DATE OF SERVICE: 03/12/2019 SUBJECTIVE: The patient noted with the following vital signs. OBJECTIVE: VITAL SIGNS: Afebrile, temperature 98.2, pulse 81, respiratory rate of 20, O2 saturations are 94% with blood pressure of 168/90. HEENT: Unremarkable. CARDIOVASCULAR: First and second heart sounds were heard. RESPIRATORY: Clear to auscultation. DIGESTIVE: Revealed a benign abdomen. EXTREMITIES: No peripheral edema. SKIN: No new gross rash. LYMPHATICS: No peripheral lymphadenopathy. LABORATORY INVESTIGATION: Showed a hemoglobin 8.5, platelet of 48,000. Chemistry showed a creatinine 1.17. IMPRESSION: 1. Acute kidney injury, transiently on dialysis, seems to be improved. 2. Thrombocytopenia, improving. PLAN: 1. We will likely remove the femoral dialysis catheter today. 2. Further management to be dependent on the clinical course. Job ID: [id number]
[2019-03-12] MEDS: Vancomycin HCl 1 GM in Premix Bag 1 BAG IVPB SCH (14:59)
[2019-03-12 16:17] VITALS: BP 167/86
[2019-03-12] MEDS: Lorazepam 2 MG/ML VIAL SLOW IVP PRN (19:16)
[2019-03-19] MEDS ORDERED: cloNIDine 0.2mg/24 Hour PATCH TD SCH (09:00)
== END 2019-03-12 20:55 | disposition hospice, inpatient (51) | DRG 808 ==
LOC: ERS 12:26 → ONC 16:21 → IMCU/EMU 03-03 21:35 → ONC 03-04 18:33
PROVIDERS: ADMIT Specialist; ATTEND Specialist
PROC: 0JPT0WZ Removal of Totally Implantable Vascular Access Device from Trunk Subcutaneous Tissue and Fascia, Open Approach (ICD-10-PCS; 2019-02-20)
PROC: 30233N1 Transfusion of Nonautologous Red Blood Cells into Peripheral Vein, Percutaneous Approach (ICD-10-PCS; 2019-02-23)
PROC: 06HN33Z Insertion of Infusion Device into Left Femoral Vein, Percutaneous Approach (ICD-10-PCS; principal; 2019-02-27)
PROC: B54CZZA Ultrasonography of Left Lower Extremity Veins, Guidance (ICD-10-PCS; 2019-02-27)
DX: D70.9 Neutropenia, unspecified (principal); A41.02 Sepsis due to Methicillin resistant Staphylococcus aureus; I63.9 Cerebral infarction, unspecified; N17.0 Acute kidney failure with tubular necrosis; G93.49 Other encephalopathy; J39.0 Retropharyngeal and parapharyngeal abscess; E87.2 Acidosis; C78.7 Secondary malignant neoplasm of liver and intrahepatic bile duct; C78.00 Secondary malignant neoplasm of unspecified lung; D61.818 Other pancytopenia; D69.6 Thrombocytopenia, unspecified; I10 Essential (primary) hypertension; E86.1 Hypovolemia; E83.39 Other disorders of phosphorus metabolism; E87.5 Hyperkalemia; Z85.038 Personal history of other malignant neoplasm of large intestine; K74.60 Unspecified cirrhosis of liver; F17.210 Nicotine dependence, cigarettes, uncomplicated; F41.8 Other specified anxiety disorders; E03.9 Hypothyroidism, unspecified; M81.0 Age-related osteoporosis without current pathological fracture; R50.81 Fever presenting with conditions classified elsewhere
CPT/HCPCS: 36415; 36416; 36430; 51701; 70450; 70490; 70551; 70553; 71045; 71275; 72141; 72156; 72157; 74177; 80048; 80053; 80069; 80076; 80202; 81003; 81015; 82140; 82805; 83605; 83880; 84484; 85025; 85046; 86706; 86850; 86900; 86901; 87040; 87077; 87086; 87149; 87186; 87340; 90935; 93005; 93306; 94760; 96361; 96365; 96374; 96375; A4216; A4353; A9577; C1752; C9113; G0257; J1200; J1642; J1644; J1885; J1940; J2001; J2020; J2060; J2250; J2270; J2310; J2405; J2543; J2550; J2704; J3010; J3370; J3486; J3490; J7050; P9016; P9035; Q0163; Q9966

== ENCOUNTER 2019-04-01 04:03 | Emergency (ER) | payer BC ==
[2019-04-01] MEDS ORDERED: Lorazepam 2 MG/ML VIAL ONE (04:42)
[2019-04-01] MEDS ORDERED: Ondansetron PF 4 MG/2 ML Vial ONE ×2 (04:43→07:38)
[2019-04-01 04:50] LABS: Hemoglobin 10.1 g/dL (12.0-16.0); Mean Corpuscular HGB CONC 32.3 g/dL (32.0-36.0); Mean Corpuscular Hemoglobin 29.5 pg (27.0-31.0); Mean Corpuscular Volume 91.2 fL (78.0-98.0); Red Blood Cell (RBC) Count 3.43 mill/uL (4.20-5.40); White Blood Cell (WBC) Count 8.3 thou/uL (4.8-10.8)
[2019-04-01 05:09] LABS: ALT (SGPT) 36 U/L (8-55); AST (SGOT) 24 U/L (5-34); Albumin 3.4 g/dL (3.5-5.0); Alkaline Phosphatase 178 U/L (40-150); Anion Gap 14 mmol/L (10-20); BUN (Urea Nitrogen) 25 mg/dL (9.8-20.1); Bilirubin, Total 2.5 mg/dL (0.2-1.2); CK (CPK) 57 U/L (29-168); Calc. Creatinine Clearance 0 mL/min (70-130); Calcium 8.8 mg/dL (7.8-10.44); Carbon Dioxide 20 mmol/L (22-29); Chloride 103 mmol/L (98-107); Estimated GFR-MDRD 46; Globulin 3.2 g/dL (2.4-3.5); Glucose 185 mg/dL (70-105); Magnesium 1.3 mg/dL (1.6-2.6); Potassium 4.7 mmol/L (3.5-5.1); Protein, Total 6.6 g/dL (6.0-8.3); Sodium 132 mmol/L (136-145)
[2019-04-01 05:13] LABS: #Lymphocytes 0.5 thou/uL (1.20-3.40); #Monocytes 0.6 thou/uL (0.11-0.59); #Neutrophils 7.2 thou/uL (1.40-6.50); %Eosinophils 0.1 % (0.0-10.0); %Lymphocytes 5.8 % (21.0-51.0); %Monocytes 7.3 % (0.0-10.0); %Neutrophils 86.8 % (42.0-75.0); Anisocytosis SLIGHT = 6-15 cells (100X) (0-5/hpf); Elliptocytes SLIGHT = 2-5 cells (100X) (0-1/hpf); Hypochromia SLIGHT = 6-15 cells (100X) (0-5/hpf); MDiff Complete? YES; Mean Platelet Volume 13.6 fL (7.4-10.4); Platelet Count 43 thou/uL (130-400); RBC Distribution Width 22.2 % (11.5-14.5)
[2019-04-01] MEDS ORDERED: Magnesium 2 GM/50 ML BAG (IN WATER) ONE (05:30)
[2019-04-01 05:32] LABS: CKMB 1.8 ng/mL (0-6.6)
[2019-04-01] MEDS ORDERED: Fentanyl 100 MCG/2 ML VIAL ONE ×2 (06:10→07:33)
--- NOTE | 2019-04-01 08:23 | RAD ---
SINGLE VIEW CHEST: HISTORY: Chest palpitations. COMPARISON: 03/03/2019 FINDINGS: Single view of the chest show normal sized cardiomediastinal silhouette. There is no evidence of cons olidation, mass, or pleural effusion. There is a remote left rib fracture. IMPRESSION: No evidence of acute cardiopulmonary disease. POS: [facility]
--- NOTE | 2019-04-05 12:27 | EKG ---
Test Reason : Blood Pressure : / mmHG Vent. Rate : 096 BPM Atrial Rate : 096 BPM P-R Int : 136 ms QRS Dur : 088 ms QT Int : 334 ms P-R-T Axes : 050 007 040 degrees QTc Int : 421 ms Normal sinus rhythm Possible Left atrial enlargement Left ventricular hypertrophy Abnormal ECG Confirmed by ADITI DAS ([id number]), sound editor ITA IBARRA ([id number]) on 04/05/2019 12:26:48 PM Referred By: Confirmed By:ADITI DAS
== END 2019-04-01 10:30 | disposition home or self-care (01) ==
LOC: ERS 04:03
DX: E83.42 Hypomagnesemia (principal); E03.9 Hypothyroidism, unspecified; F32.9 Major depressive disorder, single episode, unspecified; Z87.891 Personal history of nicotine dependence; Z79.899 Other long term (current) drug therapy
CPT/HCPCS: 36415; 71045; 80053; 82550; 82553; 83735; 84484; 85025; 93005; 96365; 96375; 96376; J2060; J2405; J3010; J3475